=== PATIENT | male | born 1960 | race Caucasian/White ===

== ENCOUNTER → 2017-08-06 | Outpatient (CLI) | payer BC ==
--- NOTE | 2017-08-06 12:29 | XR ---
EXAMINATION TYPE: XR chest 2V DATE OF EXAM: 08/06/2017 COMPARISON: NONE HISTORY: History of tobacco use. TECHNIQUE: Frontal and lateral views of the chest are obtained. FINDINGS: There is no focal air space opacity, pleural effusion, or pneumothorax seen. Underlying em physematous change may be present. The cardiac silhouette size is within normal limits. The osseou s structures are intact. IMPRESSION: No acute cardiopulmonary process.
== END ==
LOC: RADXRMAIN 11:58
PROVIDERS: ATTEND Family Medicine
DX: Z00.00 Encounter for general adult medical examination without abnormal findings (principal)
CPT/HCPCS: 71046

== ENCOUNTER 2017-12-02 07:07 | Inpatient (IN) | payer BC ==
--- NOTE | 2017-12-02 07:53 | ED ---
General Adult HPI - General Chief complaint: Abdominal Pain Stated complaint: Abd Pain Time Seen by Provider: 12/02/17 07:07 Source: patient, RN notes reviewed Mode of arrival: ambulatory Limitations: no limitations - History of Present Illness Initial comments: This is a 57-year-old male who presents emergency Department complaining of mid abdominal pain starting yesterday and it progressed to right lower quadrant abdominal pain today. Patient states he vomited once last night has not vomited today but it was so painful he was unable to sleep all night. Patient denies any diarrhea. Patient states he is somewhat constipated but that kind of typical for him. Patient denies any chest pain difficult breathing shortness of breath. Patient denies any dysuria hematuria urinary frequency. Patient denies any back pain. - Related Data Home Medications Medication Instructions Recorded Confirmed HYDROcodone/APAP 10-325MG [[place] 1 tab PO BID PRN 12/02/17 12/02/17 10-325] Allergies Allergy/AdvReac Type Severity Reaction Status Date / Time No Known Allergies Allergy Verified 12/02/17 07:41 Review of Systems ROS Statement: Those systems with pertinent positive or pertinent negative responses have been documented in the HPI. ROS Other: All systems not noted in ROS Statement are negative. Past Medical History Past Medical History: No Reported History History of Any Multi-Drug Resistant Organisms: None Reported Additional Past Surgical History / Comment(s): ankle surgery Past Psychological History: No Psychological Hx Reported Smoking Status: Never smoker Past Alcohol Use History: Occasional Past Drug Use History: None Reported General Exam - General Exam Comments Initial Comments: GENERAL: Patient is well-developed and well-nourished. Patient is nontoxic and well- hydrated and is in moderate distress. ENT: Neck is soft and supple. No significant lymphadenopathy is noted. Oropharynx is clear. Moist mucous membranes. Neck has full range of motion without eliciting any pain. EYES: The sclera were anicteric and conjunctiva were pink and moist. Extraocular movements were intact and pupils were equal round and reactive to light. Eyelids were unremarkable. PULMONARY: Unlabored respirations. Good breath sounds bilaterally. No audible rales rhonchi or wheezing was noted. CARDIOVASCULAR: There is a regular rate and rhythm without any murmurs gallops or rubs. ABDOMEN: Right lower quadrant abdominal tenderness. No rebound No palpable organomegaly was noted. There is no palpable pulsatile mass. SKIN: Skin is clear with no lesions or rashes and otherwise unremarkable. NEUROLOGIC: Patient is alert and oriented x3. Cranial nerves II through XII are grossly intact. Motor and sensory are also intact. Normal speech, volume and content. Symmetrical smile. MUSCULOSKELETAL: Normal extremities with adequate strength and full range of motion. No lower extremity swelling or edema. No calf tenderness. LYMPHATICS: No significant lymphadenopathy is noted PSYCHIATRIC: Normal psychiatric evaluation. Limitations: no limitations Course Vital Signs 12/02/17 07:11 Temperature 98.4 F Pulse Rate 93 Respiratory 18 Rate Blood Pressure 148/79 O2 Sat by Pulse 98 Oximetry Medical Decision Making - Medical Decision Making EKG shows normal sinus rhythm at 75 bpm IN interval is 160 QRS is 96 QT interval 372 QTC is 4:15. Patient's EKG shows no ST segment elevation or depression or T wave abnormalities are noted. Patient's CAT scan came back and showed acute appendicitis without perforation or abscess. I spoke with Dr. Wayne he agreed to admit the patient and take the patient to the OR. I started the patient on Zosyn. - Lab Data Result diagrams: 12/02/17 07:43 12/02/17 07:43 Lab Results 12/02/17 12/02/17 12/02/17 Range/Units 07:43 07:43 07:43 WBC 15.6 H (3.8-10.6) k/uL RBC 5.01 (4.30-5.90) m/uL Hgb 15.9 (13.0-17.5) gm/dL Hct 47.5 (39.0-53.0) % MCV 94.7 (80.0-100.0) fL MCH 31.7 (25.0-35.0) pg MCHC 33.5 (31.0-37.0) g/dL RDW 12.8 (11.5-15.5) % Plt Count 199 (150-450) k/uL Neutrophils % 87 % Lymphocytes % 6 % Monocytes % 6 % Eosinophils % 0 % Basophils % 0 % Neutrophils # 13.5 H (1.3-7.7) k/uL Lymphocytes # 0.9 L (1.0-4.8) k/uL Monocytes # 0.9 (0-1.0) k/uL Eosinophils # 0.1 (0-0.7) k/uL Basophils # 0.0 (0-0.2) k/uL Sodium 138 (137-145) mmol/L Potassium 4.4 (3.5-5.1) mmol/L Chloride 102 (98-107) mmol/L Carbon Dioxide 27 (22-30) mmol/L Anion Gap 9 mmol/L BUN 16 (9-20) mg/dL Creatinine 0.90 (0.66-1.25) mg/dL Est GFR (CKD-EPI)AfAm >90 (>60 ml/min/1.73 sqM) Est GFR (CKD-EPI)NonAf >90 (>60 ml/min/1.73 sqM) Glucose 124 H (74-99) mg/dL Plasma Lactic Acid Rey 1.6 (0.7-2.0) mmol/L Calcium 9.6 (8.4-10.2) mg/dL Total Bilirubin 0.9 (0.2-1.3) mg/dL AST 22 (17-59) U/L ALT 33 (21-72) U/L Alkaline Phosphatase 71 (38-126) U/L Total Protein 6.7 (6.3-8.2) g/dL Albumin 4.2 (3.5-5.0) g/dL Amylase 36 (30-110) U/L Lipase 39 (23-300) U/L Urine Color Urine Appearance (Clear) Urine pH (5.0-8.0) Ur Specific [place] (1.001-1.035) Urine Protein (Negative) Urine Glucose (UA) (Negative) Urine Ketones (Negative) Urine Blood (Negative) Urine Nitrite (Negative) Urine Bilirubin (Negative) Urine Urobilinogen (<2.0) mg/dL Ur Leukocyte Esterase (Negative) 12/02/17 Range/Units 07:43 WBC (3.8-10.6) k/uL RBC (4.30-5.90) m/uL Hgb (13.0-17.5) gm/dL Hct (39.0-53.0) % MCV (80.0-100.0) fL MCH (25.0-35.0) pg MCHC (31.0-37.0) g/dL RDW (11.5-15.5) % Plt Count (150-450) k/uL Neutrophils % % Lymphocytes % % Monocytes % % Eosinophils % % Basophils % % Neutrophils # (1.3-7.7) k/uL Lymphocytes # (1.0-4.8) k/uL Monocytes # (0-1.0) k/uL Eosinophils # (0-0.7) k/uL Basophils # (0-0.2) k/uL Sodium (137-145) mmol/L Potassium (3.5-5.1) mmol/L Chloride (98-107) mmol/L Carbon Dioxide (22-30) mmol/L Anion Gap mmol/L BUN (9-20) mg/dL Creatinine (0.66-1.25) mg/dL Est GFR (CKD-EPI)AfAm (>60 ml/min/1.73 sqM) Est GFR (CKD-EPI)NonAf (>60 ml/min/1.73 sqM) Glucose (74-99) mg/dL Plasma Lactic Acid Rey (0.7-2.0) mmol/L Calcium (8.4-10.2) mg/dL Total Bilirubin (0.2-1.3) mg/dL AST (17-59) U/L ALT (21-72) U/L Alkaline Phosphatase (38-126) U/L Total Protein (6.3-8.2) g/dL Albumin (3.5-5.0) g/dL Amylase (30-110) U/L Lipase (23-300) U/L Urine Color Yellow Urine Appearance Clear (Clear) Urine pH 5.5 (5.0-8.0) Ur Specific [place] 1.017 (1.001-1.035) Urine Protein Negative (Negative) Urine Glucose (UA) Negative (Negative) Urine Ketones Negative (Negative) Urine Blood Negative (Negative) Urine Nitrite Negative (Negative) Urine Bilirubin Negative (Negative) Urine Urobilinogen <2.0 (<2.0) mg/dL Ur Leukocyte Esterase Negative (Negative) Disposition Clinical Impression: Acute appendicitis Disposition: ADMITTED IP TO THIS [facility] Referrals: Jesse Jameson DO [Primary Care Provider] - 1-2 days Time of Disposition: 09:13
[2017-12-02 08:13] LABS: Basophils % (A) 0 %; Eosinophils # (A) 0.1 k/uL (0-0.7); Eosinophils % (A) 0 %; HCT 47.5 % (39.0-53.0); HGB 15.9 gm/dL (13.0-17.5); Lymphocytes # (A) 0.9 k/uL (1.0-4.8); Lymphocytes % (A) 6 %; MCH 31.7 pg (25.0-35.0); MCHC 33.5 g/dL (31.0-37.0); MCV 94.7 fL (80.0-100.0); Monocytes # (A) 0.9 k/uL (0-1.0); Monocytes % (A) 6 %; Neutrophils # (A) 13.5 k/uL (1.3-7.7); Neutrophils % (A) 87 %; Platelet Count 199 k/uL (150-450); RBC 5.01 m/uL (4.30-5.90); RDW 12.8 % (11.5-15.5); WBC 15.6 k/uL (3.8-10.6)
[2017-12-02 08:14] LABS: Appearance,Urine Clear (Clear); Bilirubin,Urine Negative (Negative); Blood,Urine Negative (Negative); Color,Urine Yellow; Glucose,Urine (UA) Negative (Negative); Ketones,Urine Negative (Negative); Leukocyte Esterase,Urine Negative (Negative); Nitrite,Urine Negative (Negative); PH, Urine 5.5 (5.0-8.0); Protein,Urine Negative (Negative); Specific Gravity,Urine 1.017 (1.001-1.035); Urobilinogen,Urine <2.0 mg/dL (<2.0)
[2017-12-02 08:27] LABS: ALT 33 U/L (21-72); AST 22 U/L (17-59); Albumin 4.2 g/dL (3.5-5.0); Alkaline Phosphatase 71 U/L (38-126); Amylase 36 U/L (30-110); Anion Gap 9 mmol/L; Blood Urea Nitrogen 16 mg/dL (9-20); Calcium 9.6 mg/dL (8.4-10.2); Carbon Dioxide 27 mmol/L (22-30); Chloride 102 mmol/L (98-107); Glucose 124 mg/dL (74-99); Lipase 39 U/L (23-300); Potassium 4.4 mmol/L (3.5-5.1); Sodium 138 mmol/L (137-145); Total Bilirubin 0.9 mg/dL (0.2-1.3); Total Protein 6.7 g/dL (6.3-8.2)
--- NOTE | 2017-12-02 08:42 | CT ---
EXAMINATION TYPE: CT abdomen pelvis wo con DATE OF EXAM: 12/02/2017 COMPARISON: CT 10/19/2008 HISTORY: 57-year-old male abdominal pain CT DLP: 1066 mGycm. Automated exposure control for dose reduction was used. TECHNIQUE: Contiguous axial scanning of the abdomen and pelvis without IV contrast. Coronal and sagit radha reconstructions performed. FINDINGS: Heart normal size with trace anterior pericardial effusion. Tiny hiatal hernia. Strandy atelectasis o r scarring at the right lung base. No pleural effusion. Liver mildly enlarged at 19.4 cm. Noncontrast appearance of the liver, gallbladder, adrenal glands, k idneys, spleen within normal limits. There is a 1 cm nodule at the tip of the pancreatic tail suspect ed to represent a splenule as the finding is unchanged from 10/19/2008. No dilated small bowel, free fluid, or free air. Small to moderate-sized fatty umbilical hernia measuring 2.8 cm wide. There is focal thickening and surrounding inflammatory change involving the appendix which is dilated up to 1.3 cm. Small appendicoliths measuring up to 6 mm are present at the appendiceal base. Mild to moderate surrounding fat stranding and tracking edema is present. No mesenteric or retroperitoneal lymphadenopathy. Mild stool burden. Some mild sigmoid diverticulosis without surrounding inflammation. Mild circumferential bladder wall thickening. Prostate gland is mildly prominent at 4.7 cm wide. Pelv ic phleboliths. No abnormal fluid collection in the pelvis or pelvic lymphadenopathy. Bones: Degenerative changes of the hips and left SI joint and degenerative disc disease particularly at L5-S1. IMPRESSION: 1. Exam positive for acute appendicitis with mild to moderate surrounding inflammation. No abscess o r free air. 2. Fatty umbilical hernia measuring 2.8 cm, tiny hiatal hernia, mild sigmoid diverticulosis. 3. Mild circumferential bladder wall thickening could relate to cystitis or chronic bladder wall hyp ertrophy. Clinically correlate.
[2017-12-02] MEDS ORDERED: PIPERACILLIN-TAZOBACTAM 3.375 GM in DEXTROSE/WATER 1 50ML.BAG IVPB STA (09:06)
[2017-12-02] MEDS ORDERED: ACETAMINOPHEN IV (For NPO) 1,000 MG in EMPTY BAG 1 BAG IVPB STA (09:38)
[2017-12-02] MEDS ORDERED: SODIUM CHLORIDE 0.9% 1,000 ML IV ONE (10:12)
--- NOTE | 2017-12-02 11:42 | P.GSHP ---
History of Present Illness H&P Date: 12/02/17 57-year-old male presents to the emergency room for chief complaint of right lower quadrant pain radiating to the mid abdomen with nausea and vomiting. Patient stated the pain was intolerable. He was not able to sleep could not lie down because of the pain. Patient stated he thought at first he was constipated. Did take a fleets enema with no results . Patient denied any episodes of chest pain, shortness of breath dizziness lightheadedness. Patient stated that he had not had any similar episodes. In the emergency room a CAT scan of the abdomen and pelvis reviewing the report indicate acute appendicitis without perforation or abscess. White count on admission 15.6. Temp 98.4. Continues to report having right lower quadrant abdominal pain worse with movement did note patient does have a small reducible umbilical hernia with the palpable left anterior abdominal wall nodule. Patient states he did tell his primary care provider about his hernia the palpable small nodule Umbilical hernia small non-red nontender with a small left anterior wall be size is not noted under the skin patient states the areas are not tender Patient states he is being worked up by orthopedic Dr. Rasmussen for left shoulder rotator cuff had an MRI last week and was to see Dr. Rasmussen today in the office to talk about treatment options stated that he was given a prescription for Gaston's because of his left shoulder pain was concerned that the Gaston's was causing constipation which was contributing to his right lower quadrant abdominal pain - Review of Systems Comment: Essentially unremarkable except as mentioned in the present illness Past Medical History Past Medical History: No Reported History History of Any Multi-Drug Resistant Organisms: None Reported Additional Past Surgical History / Comment(s): ankle surgery Past Psychological History: No Psychological Hx Reported Smoking Status: Never smoker Past Alcohol Use History: Occasional Past Drug Use History: None Reported - Past Family History Father Family Medical History: Diabetes Mellitus, Renal Disease Additional Family Medical History / Comment(s): Father at the age of 61 or 62 from diabetic complications. He had a kidney transplant. Mother Family Medical History: COPD Additional Family Medical History / Comment(s): Mother at the age of 71 yrs. She was a smoker. Medications and Allergies Home Medications Medication Instructions Recorded Confirmed Type HYDROcodone/APAP 10-325MG [[place] 1 tab PO BID PRN 12/02/17 12/02/17 History 10-325] Allergies Allergy/AdvReac Type Severity Reaction Status Date / Time No Known Allergies Allergy Verified 12/02/17 07:41 Surgical - Exam Vital Signs Temp Pulse Resp BP Pulse Ox 98.4 F 93 18 148/79 98 12/02/17 07:11 12/02/17 07:11 12/02/17 07:11 12/02/17 07:11 12/02/17 07:11 GENERAL APPEARANCE: 57-year-old male patient is alert, oriented, in no acute distress. VITAL SIGNS: Reviewed HEENT: Head is normocephalic and atraumatic. Pupils are equal and reactive. The nares are patent. Oropharynx is clear without lesions. NECK: Supple without lymphadenopathy. Traches midline. HEART: S1, S2. Regular rate and rhythm. No murmur denying chest pain LUNGS: No crackles or wheezes are heard. Adequate air movement bilaterally no cough noted ABDOMEN: Soft, positive tenderness with palpitation to the right upper quadrant increase with movement, nondistended with good bowel sounds. No peritoneal signs. No palpable organomegaly EXTREMITIES: Normal skin color and turgor. No cyanosis, rash, ulceration, clubbing or edema. Radial pedal pulses are 2/4 bilaterally. NEUROLOGICAL: No focal deficits. Strength and sensation are grossly intact. Results - Labs 12/02/17 07:43 12/02/17 07:43 Abnormal Lab Results - Last 24 Hours (Table) 12/02/17 12/02/17 Range/Units 07:43 07:43 WBC 15.6 H (3.8-10.6) k/uL Neutrophils # 13.5 H (1.3-7.7) k/uL Lymphocytes # 0.9 L (1.0-4.8) k/uL Glucose 124 H (74-99) mg/dL Diabetes panel 12/02/17 Range/Units 07:43 Sodium 138 (137-145) mmol/L Potassium 4.4 (3.5-5.1) mmol/L Chloride 102 (98-107) mmol/L Carbon Dioxide 27 (22-30) mmol/L BUN 16 (9-20) mg/dL Creatinine 0.90 (0.66-1.25) mg/dL Glucose 124 H (74-99) mg/dL Calcium 9.6 (8.4-10.2) mg/dL AST 22 (17-59) U/L ALT 33 (21-72) U/L Alkaline Phosphatase 71 (38-126) U/L Total Protein 6.7 (6.3-8.2) g/dL Albumin 4.2 (3.5-5.0) g/dL Calcium panel 12/02/17 Range/Units 07:43 Calcium 9.6 (8.4-10.2) mg/dL Albumin 4.2 (3.5-5.0) g/dL Pituitary panel 12/02/17 Range/Units 07:43 Sodium 138 (137-145) mmol/L Potassium 4.4 (3.5-5.1) mmol/L Chloride 102 (98-107) mmol/L Carbon Dioxide 27 (22-30) mmol/L BUN 16 (9-20) mg/dL Creatinine 0.90 (0.66-1.25) mg/dL Glucose 124 H (74-99) mg/dL Calcium 9.6 (8.4-10.2) mg/dL Adrenal panel 12/02/17 Range/Units 07:43 Sodium 138 (137-145) mmol/L Potassium 4.4 (3.5-5.1) mmol/L Chloride 102 (98-107) mmol/L Carbon Dioxide 27 (22-30) mmol/L BUN 16 (9-20) mg/dL Creatinine 0.90 (0.66-1.25) mg/dL Glucose 124 H (74-99) mg/dL Calcium 9.6 (8.4-10.2) mg/dL Total Bilirubin 0.9 (0.2-1.3) mg/dL AST 22 (17-59) U/L ALT 33 (21-72) U/L Alkaline Phosphatase 71 (38-126) U/L Total Protein 6.7 (6.3-8.2) g/dL Albumin 4.2 (3.5-5.0) g/dL Assessment and Plan Assessment: Impression Present on admission right lower quadrant abdominal pain suspect due to acute appendicitis Computed tomography scan of the abdomen pelvis report indicates evidence of acute appendicitis without perforation or abscess Present on admission leukocytosis present on admission small reducible umbilical hernia Left shoulder rotator cuff pain being worked up by orthopedics Plan IV fluid for hydration Keep nothing by mouth OR today for a lap appendectomy per Pain control DVT and GI prophylaxis IV Zosyn as ordered The above impression and plan of care have been discussed and directed by signing physician. Brittney Cabello nurse practitioner acting as scribe for signing physician.
[2017-12-02] MEDS: FAMOTIDINE 20 MG/2 ML VIAL IV SCH ×2 (13:38→22:01)
[2017-12-02] MEDS ORDERED: IV FLUID CONTINUATION 1,000 ML IV ONE (14:13)
[2017-12-02] MEDS ORDERED: ROCURONIUM BROMIDE 10 MG/ML 10 ML VIAL IV ONE (14:42)
[2017-12-02] MEDS ORDERED: GLYCOPYRROLATE 0.2 MG/ML 2 ML VIAL ONE (14:42)
[2017-12-02] MEDS ORDERED: fentaNYL (PF) 50 MCG/ML 2 ML AMP ONE (14:42)
[2017-12-02] MEDS ORDERED: MIDAZOLAM 2 MG/2 ML VIAL ONE (14:42)
[2017-12-02] MEDS ORDERED: KETOROLAC 30 MG/ML 1 ML VIAL ONE (14:42)
[2017-12-02] MEDS ORDERED: LIDOCAINE 1% INJ 10MG/ML (20 ML MDV) ONE (14:42)
[2017-12-02] MEDS ORDERED: PROPOFOL 10 MG/ML 20 ML VIAL IV ONE (14:42)
[2017-12-02] MEDS ORDERED: SUCCINYLCHOLINE CHLORIDE 100 MG/5 ML SYR IV ONE (14:42)
[2017-12-02] MEDS ORDERED: NEOSTIGMINE 1 MG/ML 10 ML VIAL ONE (14:42)
[2017-12-02] MEDS ORDERED: ONDANSETRON 4 MG/2 ML VIAL IVP PRN ×2 (14:47→15:21)
--- NOTE | 2017-12-02 14:48 | P.CONS ---
History of Present Illness - Reason for Consult Consult date: 12/02/17 Medical management - History of Present Illness This is a 57-year-old male patient of Dr. Jameson with past medical history of benign prostatic hypertrophy, skin cancer on the left cheek. Patient gives history that on yesterday morning around 10:30 in the morning started having pain started in the epigastric area and then down into the entire stomach. Eventually was painful in the right lower quadrant in the area felt hard. He states he was rubbing the area without any improvement. He had increased pain with any type of movement and did not sleep well during the night. By morning he knew that he needed to come in the hospital with worsening pain and discomfort.. Patient came into [facility] emergency center for evaluation. He was found to have elevated white count of 15.6, CAT scan of the abdomen and pelvis revealed acute appendicitis with mild to moderate surrounding inflammation. No abscess or free air. Fatty umbilical hernia measuring 2.8 cm , tiny hiatal hernia, mild sigmoid diverticulosis. Mild circumferential bladder wall thickening could relate to cystitis or chronic bladder wall hypertrophy. Patient was admitted under the care of Dr. Wayne with plan for appendectomy this afternoon. Patient is medically cleared for surgical intervention. Review of Systems All systems: negative Constitutional: Reports poor appetite, Denies chills, Denies fever Eyes: denies blurred vision, denies pain Ears, nose, mouth and throat: Denies headache, Denies sore throat, Denies vertigo Cardiovascular: Denies chest pain, Denies decreased exercise tolerance, Denies dyspnea on exertion, Denies leg edema, Denies lightheadedness, Denies shortness of breath, Denies syncope Respiratory: Denies cough, Denies cough with sputum, Denies dyspnea, Denies excessive sputum, Denies hemoptysis, Denies home oxygen, Denies wheezing Gastrointestinal: Reports abdominal pain, Reports loss of appetite, Reports nausea, Reports vomiting, Denies diarrhea Genitourinary: Denies dysuria, Denies urinary frequency, Denies urinary retention Musculoskeletal: Denies frequent falls, Denies myalgias Integumentary: Denies pruritus, Denies rash Neurological: Denies numbness, Denies weakness Psychiatric: Denies anxiety, Denies depression Endocrine: Denies fatigue, Denies weight change Past Medical History Past Medical History: No Reported History Additional Past Medical History / Comment(s): Arthritis L thumb, past L ankle fracture with surgery, BPH, constipation, skin cancer removal. History of Any Multi-Drug Resistant Organisms: None Reported Additional Past Surgical History / Comment(s): ankle surgery Past Anesthesia/Blood Transfusion Reactions: No Reported Reaction, Motion Sickness Past Psychological History: No Psychological Hx Reported Smoking Status: Former smoker Past Alcohol Use History: Occasional Additional Past Alcohol Use History / Comment(s): Patient quit smoking in 1996. He denies any medical marijuana, marijuana, street drug or alcohol use. Past Drug Use History: None Reported - Past Family History Father Family Medical History: Diabetes Mellitus, Renal Disease Additional Family Medical History / Comment(s): Father at the age of 61 or 62 from diabetic complications. He had a kidney transplant. Mother Family Medical History: COPD Additional Family Medical History / Comment(s): Mother at the age of 71 yrs. She was a smoker. Brother(s) Additional Family Medical History / Comment(s): Patient has 2 brothers and one has history of diabetes and the other patient does not know. Patient has 1 sister with no major medical problems. Daughter(s) Additional Family Medical History / Comment(s): Patient has one daughter 31 years of age and one son 29 years of age with no major medical problems. Medications and Allergies Home Medications Medication Instructions Recorded Confirmed Type HYDROcodone/APAP 10-325MG [[place] 1 tab PO BID PRN 12/02/17 12/02/17 History 10-325] Allergies Allergy/AdvReac Type Severity Reaction Status Date / Time No Known Allergies Allergy Verified 12/02/17 07:41 Physical Exam Vitals: Vital Signs Temp Pulse Resp BP Pulse Ox 12/02/17 10:46 98 F 86 18 141/65 99 12/02/17 09:30 98.7 F 85 18 119/67 98 12/02/17 07:11 98.4 F 93 18 148/79 98 Intake and Output 12/01/17 12/02/17 12/02/17 22:59 06:59 14:59 Other: Weight 102.058 kg Gen: This is a 57-year-old male patient. He is in bed and appears to be comfortable at this time. No acute distress noted. HEENT: Head is atraumatic, normocephalic. Pupils equal, round. Sclerae is anicteric. NECK: Supple. No JVD. No lymphadenopathy. No thyromegaly. LUNGS: Clear to auscultation. No wheezes or rhonchi. No intercostal retractions. HEART: Regular rate and rhythm. No murmur. ABDOMEN: Soft. Bowel sounds are present. No masses. Tenderness to the right upper quadrant, right lower quadrant. EXTREMITIES: No pedal edema. No calf tenderness. NEUROLOGICAL: Patient is awake, alert and oriented x3. Cranial nerves 2 through 12 are grossly intact. Results CBC & Chem 7: 12/02/17 07:43 12/02/17 07:43 Labs: Abnormal Lab Results - Last 24 Hours (Table) 12/02/17 12/02/17 Range/Units 07:43 07:43 WBC 15.6 H (3.8-10.6) k/uL Neutrophils # 13.5 H (1.3-7.7) k/uL Lymphocytes # 0.9 L (1.0-4.8) k/uL Glucose 124 H (74-99) mg/dL Assessment and Plan Plan: 1. Acute appendicitis. Patient is planned for surgery this afternoon. Continue current plan per Dr. Wayne. Continue Zosyn, IV fluids at 125 mL per hour, Dilaudid for pain control. Zofran as needed for nausea and vomiting. Incentive spirometry to reduce incidence of atelectasis and hospital-acquired pneumonia. 2. Leukocytosis secondary to acute appendicitis, monitor. 3. Left shoulder rotator cuff pain following with orthopedics as an outpatient. 4. DVT prophylaxis. Pepcid IV. Discharge plan: Return home. Impression and plan of care have been directed as dictated by the signing physician. Shannon Clifford nurse practitioner acting as scribe for signing physician.
[2017-12-02] MEDS ORDERED: BUPIVACAINE (PF) 0.5% 30 ML VIAL SQ ONE (15:00)
--- NOTE | 2017-12-02 15:20 | P.OP ---
Date of Procedure: 12/02/17 Preoperative Diagnosis: Acute appendicitis Postoperative Diagnosis: Acute appendicitis Procedure(s) Performed: Laparoscopic appendectomy Anesthesia: [place] Surgeon: Romaine Wayne Estimated Blood Loss (ml): 5 Pathology: other (Appendix) Condition: stable Disposition: PACU Description of Procedure: HThe patient's placed on the operating table in the supine position. The patient received general anesthesia. The abdomen was prepped and draped in the usual sterile fashion. The skin was anesthetized 1% local Xylocaine at the trocar sites. Using an 11 blade the skin was incised at the umbilicus. The umbilicus was grasped with a Sarina clamp and then a Veress needle was placed into the peritoneal cavity. Position of the Veress needle was confirmed with positive drop test. After adequate insufflation a 5 mm trocar was placed into the peritoneal cavity. The abdomen was further insufflated. And then the laparoscope was placed in the peritoneal cavity. Next a 5 mm trocar was placed in the midline suprapubic position. And then a 10 mm trocar was placed in the midline epigastric position. The patient was rotated with the right side up and in Trendelenburg. The appendix was visualized. The appendix appeared to be inflamed. The appendix was grasped and then using the Harmonic scissors the mesoappendix was divided. A PDS Endoloop was then placed around the base of the appendix. And then the appendix was divided using Harmonic scissors. The appendix was placed into an Endo Catch and brought out through the 10 mm trocar site. The abdomen was irrigated. There is no bleeding seen. The trochars withdrawn. The skin was closed interrupted 3-0 Monocryl suture. Dermabond dressing was applied. Patient was sent to recovery room in stable condition.
[2017-12-02] MEDS ORDERED: LACTATED RINGERS 1,000 ML IV ONE (15:21)
[2017-12-02] MEDS ORDERED: NALOXONE 0.4 MG/ML 1 ML VIAL IV PRN (15:21)
[2017-12-02] MEDS ORDERED: METOCLOPRAMIDE 5 MG/ML 2 ML VIAL IVP PRN (15:21)
[2017-12-02] MEDS: KETOROLAC 30 MG/ML 1 ML VIAL IVP SCH ×2 (16:22→21:58)
[2017-12-02] MEDS: PIPERACILLIN-TAZOBACTAM 3.375 GM in DEXTROSE/WATER 1 50ML.BAG IVPB SCH (16:29)
[2017-12-02] MEDS: HYDROmorphone 0.5 MG/0.5 ML SYRINGE IVP PRN ×2 (17:20→22:01)
[2017-12-03] MEDS: PIPERACILLIN-TAZOBACTAM 3.375 GM in DEXTROSE/WATER 1 50ML.BAG IVPB SCH ×4 (00:01→23:13)
[2017-12-03] MEDS: KETOROLAC 30 MG/ML 1 ML VIAL IVP SCH ×4 (03:50→21:28)
[2017-12-03] MEDS: HYDROmorphone 0.5 MG/0.5 ML SYRINGE IVP PRN ×3 (03:51→17:06)
[2017-12-03] MEDS: ENOXAPARIN 40 MG/0.4 ML SYRINGE SQ SCH (08:31)
[2017-12-03] MEDS: FAMOTIDINE 20 MG/2 ML VIAL IV SCH ×2 (08:31→21:28)
--- NOTE | 2017-12-03 11:09 | P.PN ---
Progress Note - Text Progress Note Date: 12/03/17 The patient's resting comfortably in bed. He still has some complaints of abdominal pain. On exam his vital signs are stable. His abdomen soft. Patient will continue receive IV antibiotic. We dysphagia discharge home tomorrow.
--- NOTE | 2017-12-03 15:47 | P.PN ---
Subjective Progress Note Date: 12/03/17 This is a 57-year-old male patient of Dr. Jameson with past medical history of benign prostatic hypertrophy, skin cancer on the left cheek. Patient gives history that on yesterday morning around 10:30 in the morning started having pain started in the epigastric area and then down into the entire stomach. Eventually was painful in the right lower quadrant in the area felt hard. He states he was rubbing the area without any improvement. He had increased pain with any type of movement and did not sleep well during the night. By morning he knew that he needed to come in the hospital with worsening pain and discomfort.. Patient came into [facility] emergency center for evaluation. He was found to have elevated white count of 15.6, CAT scan of the abdomen and pelvis revealed acute appendicitis with mild to moderate surrounding inflammation. No abscess or free air. Fatty umbilical hernia measuring 2.8 cm , tiny hiatal hernia, mild sigmoid diverticulosis. Mild circumferential bladder wall thickening could relate to cystitis or chronic bladder wall hypertrophy. Patient was admitted under the care of Dr. Wayne with plan for appendectomy this afternoon. Patient is medically cleared for surgical intervention. 12/03 patient examined bedside. Currently on clear liquid diet. His complains of significant abdominal pain in the right lower quadrant on deep palpation. Patient encouraged oral pain medication and to avoid IV pain medication. Complain of significant bloating, no bowel movements for the past 2 days Objective - Vital Signs Vital signs: Vital Signs Temp 98.1 F 12/03/17 15:00 Pulse 93 12/03/17 15:00 Resp 16 12/03/17 15:00 BP 123/78 12/03/17 15:00 Pulse Ox 95 12/03/17 15:00 Intake & Output 12/02/17 12/03/17 12/03/17 18:59 06:59 18:59 Intake Total 800 1050 Output Total 2 200 Balance 798 -200 1050 Weight 102.058 kg Intake: IV 800 Intake, IV Titration 1050 Amount IV Fluid Continuation 1, 50 000 ml @ 0 mls/hr IV .STK -MED ONE Rx#:[id number] Lactated Ringers 1,000 ml 1000 @ 125 mls/hr IV .Q8H ONE Rx#:[id number] Output: Urine 200 Estimated Blood Loss 2 Other: Voiding Method Toilet Toilet Urinal # Voids 1 0 # Bowel Movements 0 - Exam Gen: This is a 57-year-old male patient. He is in bed and appears to be comfortable at this time. No acute distress noted. HEENT: Head is atraumatic, normocephalic. Pupils equal, round. Sclerae is anicteric. NECK: Supple. No JVD. No lymphadenopathy. No thyromegaly. LUNGS: Clear to auscultation. No wheezes or rhonchi. No intercostal retractions. HEART: Regular rate and rhythm. No murmur. ABDOMEN: Soft. Bowel sounds are present. No masses. Distended in appearance Tenderness to the right lower quadrant on deep palpation. EXTREMITIES: No pedal edema. No calf tenderness. NEUROLOGICAL: Patient is awake, alert and oriented x3. Cranial nerves 2 through 12 are grossly intact. - Labs CBC & Chem 7: 12/02/17 07:43 12/02/17 07:43 Assessment and Plan Plan: 1. Acute appendicitis. Patient is planned for surgery this afternoon. Continue current plan per Dr. Wayne. Continue Zosyn, IV fluids at 125 mL per hour, Dilaudid for pain control. Zofran as needed for nausea and vomiting. Incentive spirometry to reduce incidence of atelectasis and hospital-acquired pneumonia. 2. Leukocytosis secondary to acute appendicitis, monitor. 3. Left shoulder rotator cuff pain following with orthopedics as an outpatient. 4. DVT prophylaxis. Pepcid IV. Discharge plan: Return home tomorrow.
[2017-12-03] MEDS: HYDROcodone/APAP 5-325MG 1 EACH TAB PO PRN (20:12)
[2017-12-04] MEDS: KETOROLAC 30 MG/ML 1 ML VIAL IVP SCH ×3 (04:46→12:14)
[2017-12-04] MEDS ORDERED: ACETAMINOPHEN TAB 325 MG TAB PO PRN (05:55)
[2017-12-04] MEDS: PIPERACILLIN-TAZOBACTAM 3.375 GM in DEXTROSE/WATER 1 50ML.BAG IVPB SCH ×3 (08:26→23:29)
[2017-12-04] MEDS: ENOXAPARIN 40 MG/0.4 ML SYRINGE SQ SCH (08:26)
[2017-12-04] MEDS: FAMOTIDINE 20 MG/2 ML VIAL IV SCH ×2 (08:26→19:55)
--- NOTE | 2017-12-04 09:20 | P.PN ---
Progress Note - Text Progress Note Date: 12/04/17 The patient is resting comfortably in his bed. He has minimal Pain. He is passing flatus. The patient did spike a temperature of 101 earlier this morning. On exam is lesser stable. His evidence soft. Status post laparoscopic appendectomy for acute appendicitis. Patient will remain in the hospital today for continued IV antibiotics. We will hopefully discharge home tomorrow.
--- NOTE | 2017-12-04 13:50 | XR ---
EXAMINATION TYPE: XR chest 2V DATE OF EXAM: 12/04/2017 HISTORY: hypoxia. REFERENCE: Previous study dated 08/06/2017. FINDINGS: There is some atelectasis at the left lung base. The lungs are otherwise clear. Pleural spa ce are clear. Heart size is within normal limits. IMPRESSION: DEVELOPING ATELECTASIS OR CONSOLIDATION, LEFT LUNG BASE.
--- NOTE | 2017-12-04 13:52 | XR ---
EXAMINATION TYPE: XR abdomen 1V , 2 VIEWS DATE OF EXAM ORDERED: 12/04/2017 HISTORY: ileitis . COMPARISON: None. FINDINGS: There is increased opacity at the left lung base. Within the abdomen, the abdominal gas pattern is nonspecific with nondistended air-filled loops of la rge and small bowel throughout the abdomen. There are multiple air-fluid levels. There are no unusual calcifications. Both femoral heads are nonspherical. IMPRESSION: 1. LEFT LOWER LOBE INFILTRATE. 2. FINDINGS MOST CONSISTENT WITH GENERALIZED ILEUS. 3. PLEASE CORRELATE CLINICALLY TO EXCLUDE FEMOROACETABULAR IMPINGEMENT SYNDROME.
--- NOTE | 2017-12-04 15:54 | P.PN ---
Subjective This is a 57-year-old male patient of Dr. Jameson with past medical history of benign prostatic hypertrophy, skin cancer on the left cheek. Patient gives history that on yesterday morning around 10:30 in the morning started having pain started in the epigastric area and then down into the entire stomach. Eventually was painful in the right lower quadrant in the area felt hard. He states he was rubbing the area without any improvement. He had increased pain with any type of movement and did not sleep well during the night. By morning he knew that he needed to come in the hospital with worsening pain and discomfort.. Patient came into [facility] emergency center for evaluation. He was found to have elevated white count of 15.6, CAT scan of the abdomen and pelvis revealed acute appendicitis with mild to moderate surrounding inflammation. No abscess or free air. Fatty umbilical hernia measuring 2.8 cm , tiny hiatal hernia, mild sigmoid diverticulosis. Mild circumferential bladder wall thickening could relate to cystitis or chronic bladder wall hypertrophy. Patient was admitted under the care of Dr. Wayne with plan for appendectomy this afternoon. Patient is medically cleared for surgical intervention. 12/03 patient examined bedside. Currently on clear liquid diet. His complains of significant abdominal pain in the right lower quadrant on deep palpation. Patient encouraged oral pain medication and to avoid IV pain medication. Complain of significant bloating, no bowel movements for the past 2 days 12/04 patient had a temp of 101 last night. Denies any cough but does have some phlegm production associated with some congestion. Patient was on IV fluids and has crackles on examination likely secondary to volume overload. Chest x- ray concerning for developing atelectasis or consolidation in the left lung base. Abdominal x-ray positive for ileus patient to be kept nothing by mouth. Blood cultures sent. He urine analysis completely clean. Continue to use Zosyn Objective - Vital Signs Vital signs: Vital Signs Temp 99.4 F 12/04/17 14:32 Pulse 118 H 12/04/17 14:32 Resp 16 12/04/17 14:32 BP 115/68 12/04/17 14:32 Pulse Ox 100 12/04/17 14:32 Intake & Output 12/03/17 12/04/17 12/04/17 18:59 06:59 18:59 Intake Total 1050 50 Balance 1050 50 Intake: Intake, IV Titration 1050 50 Amount IV Fluid Continuation 1, 50 0 000 ml @ 0 mls/hr IV .STK -MED ONE Rx#:[id number] Lactated Ringers 1,000 ml 1000 @ 125 mls/hr IV .Q8H ONE Rx#:[id number] Piperacillin-Tazobactam 3 50 .375 gm In Dextrose/Water 1 50ml.bag @ 12.5 mls/hr IVPB Q8HR [facility] Rx#: [id number] Other: # Voids 1 - Exam Gen: This is a 57-year-old male patient. He is in bed and appears to be comfortable at this time. No acute distress noted. HEENT: Head is atraumatic, normocephalic. Pupils equal, round. Sclerae is anicteric. NECK: Supple. No JVD. No lymphadenopathy. No thyromegaly. LUNGS: Decreased air entry bilaterally at the bases. Crackles heard at the left lung bases. HEART: Tachycardic with normal rhythm. No murmur. ABDOMEN: Soft. Bowel sounds are present. Abdominal distention. No masses. Distended in appearance Tenderness to the right lower quadrant on deep palpation. EXTREMITIES: No pedal edema. No calf tenderness. NEUROLOGICAL: Patient is awake, alert and oriented x3. Cranial nerves 2 through 12 are grossly intact. - Labs CBC & Chem 7: 12/02/17 07:43 12/02/17 07:43 Assessment and Plan Plan: 1. Acute appendicitis. Patient is planned for surgery this afternoon. Continue current plan per Dr. Wayne. Continue Zosyn, IV fluids at 125 mL per hour, Dilaudid for pain control. Zofran as needed for nausea and vomiting. Incentive spirometry to reduce incidence of atelectasis and hospital-acquired pneumonia. 2. Fever with Leukocytosis secondary to pneumonia. Continue Zosyn. DuoNeb as needed for shortness of breath 3. Left shoulder rotator cuff pain following with orthopedics as an outpatient. 4. DVT prophylaxis. Heparin every 12 #5 generalized ileus - keep patient nothing by mouth except ice chips Discharge plan: pending clinical improvement
[2017-12-04] MEDS ORDERED: DEXTROSE 5%-0.9% NACL 1,000 ML IV SCH (16:00)
[2017-12-04] MEDS ORDERED: D5W WITH KCL 20 MEQ/L 1,000 ML IV SCH (16:00)
[2017-12-04 17:31] LABS: Albumin 3.5 g/dL (3.5-5.0); Basophils % (A) 0 %; Calcium 9.1 mg/dL (8.4-10.2); Eosinophils # (A) 0.3 k/uL (0-0.7); Eosinophils % (A) 3 %; HCT 44.4 % (39.0-53.0); HGB 15.1 gm/dL (13.0-17.5); Lymphocytes # (A) 0.9 k/uL (1.0-4.8); Lymphocytes % (A) 8 %; MCH 32.8 pg (25.0-35.0); MCV 96.6 fL (80.0-100.0); Mean Platelet Volume 7.9; Monocytes # (A) 0.7 k/uL (0-1.0); Monocytes % (A) 6 %; Neutrophils # (A) 9.5 k/uL (1.3-7.7); Neutrophils % (A) 82 %; Platelet Count 150 k/uL (150-450); Potassium 4.1 mmol/L (3.5-5.1); RBC 4.59 m/uL (4.30-5.90); RDW 13.6 % (11.5-15.5); Total Bilirubin 2.4 mg/dL (0.2-1.3); Total Protein 6.2 g/dL (6.3-8.2); WBC 11.6 k/uL (3.8-10.6)
[2017-12-04] MEDS: HYDROcodone/APAP 5-325MG 1 EACH TAB PO PRN (19:41)
[2017-12-05 07:09] VITALS: BP 134/92; PULSE 82; RESP 20; TEMP 97.9
[2017-12-05] MEDS: FAMOTIDINE 20 MG/2 ML VIAL IV SCH (07:58)
[2017-12-05] MEDS: ENOXAPARIN 40 MG/0.4 ML SYRINGE SQ SCH (07:58)
[2017-12-05] MEDS: PIPERACILLIN-TAZOBACTAM 3.375 GM in DEXTROSE/WATER 1 50ML.BAG IVPB SCH (07:58)
[2017-12-05 09:08] LABS: ALT 31 U/L (21-72); AST 29 U/L (17-59); Albumin 3.3 g/dL (3.5-5.0); Alkaline Phosphatase 101 U/L (38-126); Anion Gap 10 mmol/L; Blood Urea Nitrogen 14 mg/dL (9-20); Calcium 8.7 mg/dL (8.4-10.2); Carbon Dioxide 27 mmol/L (22-30); Chloride 103 mmol/L (98-107); Glucose 110 mg/dL (74-99); Potassium 4.3 mmol/L (3.5-5.1); Sodium 140 mmol/L (137-145); Total Bilirubin 1.9 mg/dL (0.2-1.3); Total Protein 5.9 g/dL (6.3-8.2)
[2017-12-05 09:27] LABS: Basophils % (A) 0 %; Eosinophils # (A) 0.3 k/uL (0-0.7); Eosinophils % (A) 4 %; HCT 40.2 % (39.0-53.0); HGB 13.7 gm/dL (13.0-17.5); Lymphocytes # (A) 0.5 k/uL (1.0-4.8); Lymphocytes % (A) 6 %; MCH 32.5 pg (25.0-35.0); MCV 95.7 fL (80.0-100.0); Mean Platelet Volume 8.1; Monocytes # (A) 0.6 k/uL (0-1.0); Monocytes % (A) 7 %; Neutrophils % (A) 82 %; Platelet Count 153 k/uL (150-450); WBC 8.6 k/uL (3.8-10.6)
--- NOTE | 2017-12-05 11:13 | P.PN ---
Subjective Progress Note Date: 12/05/17 57-year-old male up ambulating in the hallway states passing gas and states had a bowel movement last night. Afebrile. Surgical dressing sites dry. Patient did spike a temp last evening of 101. Current temp 97.9. The white count is down to 8.6. Patient states he can use his incentive spirometer achieving thousand. "Yesterday could only get 500. Tolerating activity. States anxious to be discharged home. Patient is postop December 02 upper scapular appendectomy for acute appendicitis. Patient states yesterday did have abdominal cramping after his diet was advanced. Currently patient on clear liquid diet states abdominal cramping resolved Objective - Vital Signs Vital signs: Vital Signs Temp 97.9 F 12/05/17 06:58 Pulse 82 12/05/17 06:58 Resp 20 12/05/17 06:58 BP 134/92 12/05/17 06:58 Pulse Ox 94 L 12/05/17 06:58 Intake & Output 12/04/17 12/05/17 12/05/17 18:59 06:59 18:59 Intake Total 50 550 Balance 50 550 Intake: IV 400 Dextrose 5%-0.9% NaCl 1, 400 000 ml @ 50 mls/hr IV . Q20H [facility] Rx#:[id number] Intake, IV Titration 50 50 Amount IV Fluid Continuation 1, 0 000 ml @ 0 mls/hr IV .STK -MED ONE Rx#:[id number] Piperacillin-Tazobactam 3 50 50 .375 gm In Dextrose/Water 1 50ml.bag @ 12.5 mls/hr IVPB Q8HR [facility] Rx#: [id number] Oral 100 Other: # Voids 1 # Bowel Movements 3 1 - Exam Physical exam 57-year-old male ambulating in the hallway denies dizziness lightheadedness chest pain or shortness of breath Lungs adequate air movement bilaterally on room air Heart S1-S2 audible regular Abdomen surgical dressing site dry. Active bowel tones. Surgical tenderness appropriate. Tolerating diet Distended urinating no difficulty not distended no difficulty in urinating states had a bowel movement Extremities no edema noted - Labs CBC & Chem 7: 12/05/17 07:50 12/05/17 07:50 Labs: Abnormal Lab Results - Last 24 Hours (Table) 0712/04/17 12/05/17 Range/Units 16:56 16:56 07:50 WBC 11.6 H (3.8-10.6) k/uL RBC 4.20 L (4.30-5.90) m/uL Neutrophils # 9.5 H (1.3-7.7) k/uL Lymphocytes # 0.9 L 0.5 L (1.0-4.8) k/uL Carbon Dioxide 31 H (22-30) mmol/L Glucose (74-99) mg/dL Total Bilirubin 2.4 H (0.2-1.3) mg/dL Total Protein 6.2 L (6.3-8.2) g/dL Albumin (3.5-5.0) g/dL 12/05/17 Range/Units 07:50 WBC (3.8-10.6) k/uL RBC (4.30-5.90) m/uL Neutrophils # (1.3-7.7) k/uL Lymphocytes # (1.0-4.8) k/uL Carbon Dioxide (22-30) mmol/L Glucose 110 H (74-99) mg/dL Total Bilirubin 1.9 H (0.2-1.3) mg/dL Total Protein 5.9 L (6.3-8.2) g/dL Albumin 3.3 L (3.5-5.0) g/dL Microbiology - Last 24 Hours (Table) 12/04/17 06:39 Blood Culture - Preliminary Blood No Growth after 24 hours 12/04/17 06:30 Blood Culture - Preliminary Blood No Growth after 24 hours Assessment and Plan Assessment: Impression Present on admission right lower quadrant abdominal pain suspect due to acute appendicitis Computed tomography scan of the abdomen pelvis report indicates evidence of acute appendicitis without perforation or abscess Present on admission leukocytosis present on admission small reducible umbilical hernia Left shoulder rotator cuff pain being worked up by orthopedics Status post December 02 laparoscopic appendectomy for acute appendicitis Postop febrile suspect early atelectasis left lung base Abdominal x-ray findings consistent with early ileus resolving Plan Continue postop surgical care Increase activity Diet as tolerated Prepped for probable discharge soon Pain control DVT and GI prophylaxis IV Zosyn as ordered The above impression and plan of care have been discussed and directed by signing physician. Brittney Cabello nurse practitioner acting as scribe for signing physician.
--- NOTE | 2017-12-05 12:30 | CDI ---
Last Revision, April 2017 Documentation Clarification Form Date: 12/05/2017 12:22:00 PM From: Amy BranchARMNAD, CCDS Admit Date: 12/02/2017 10:12:00 AM Patient Name: Jose Wells Visit Number: [id number] Discharge Date: ATTENTION: The Clinical Documentation Specialists (CDI) and [facility] Coding Staff appreciate your assistance in clarifying documentation. Please respond to the clarification below the line at the bottom and electronically sign. The CDI & [facility] Coding staff will review the response and follow-up if needed. Please note: Queries are made part of the Legal Health Record. If you have any questions, please contact the author of this message via ITS. Dr. Romaine Wayne: Patient is POD # 4 status post a laparoscopic appendectomy for acute appendicitis. Per the 12/05 progress note: Abdominal Xray findings consistent with early ileus, resolving. Patients Admitting Diagnosis: Acute Appendicitis Post-Operative Diagnosis: same Procedure performed: Laparoscopic Appendectomy History/Risk Factors: Former smoker. Clinical Indicators: Minimal postoperative abdominal pain, Ileus found on postop abdominal Xray. Treatment: Diet as tolerated, increased activity, pain control, IV Zosyn. In order to accurately reflect this patients severity of illness, please clarify if the post-operative diagnosis of ileus is: An expected post-procedural or post-surgical condition; Integral to the procedure; Inherent to the procedure; An unexpected post-procedural or post-surgical condition related to surgical care; Other, please specify Unable to determine Please explain the significance of the diagnosis related to the patient's treatment plan. Please continue to document in your progress notes and discharge summary in order to capture severity of illness and risk of mortality. Include clinical findings that support your diagnosis. MTDD
--- NOTE | 2017-12-05 12:33 | P.DS ---
Providers Date of admission: 12/02/17 10:12 Expected date of discharge: 12/05/17 Attending physician: Romaine Wayne Consults: 12/02/17 11:08 Consult Physician Urgent Consulting Provider: Chely Reynolds Consult Reason/Comments: med mtg Do you want consulting provider notified?: Yes Primary care physician: Addison Gilbert Hospital Course: 57-year-old who presented on day of admission to the emergency room to be evaluated for right lower quadrant pain radiating to the mid abdomen with nausea vomiting patient states the pain was intolerable. Could not sleep. Came into the emergency room to be evaluated. Patient stated he had not had prior episodes. At first he thought he was constipated did take a fleets enema at home there was no results. CAT scan of the abdomen pelvis showed acute appendicitis without perforation or abscess. Patient was seen by surgical service underwent laparoscopic appendectomy for acute appendicitis post procedure patient did develop temp chest x-ray suggest early atelectasis with left lower lobe pneumonia not ruled out. Patient was on antibiotics. On the day of discharge there was no white count patient was afebrile patient was appropriate to be discharged home No opiate prescriptions were provided patient stated that he had Blum set home for his left rotator cuff shoulder Impression Present on admission right lower quadrant abdominal pain suspect due to acute appendicitis Computed tomography scan of the abdomen pelvis report indicates evidence of acute appendicitis without perforation or abscess Present on admission leukocytosis present on admission small reducible umbilical hernia Left shoulder rotator cuff pain being worked up by orthopedics Status post December 02 laparoscopic appendectomy for acute appendicitis Postop febrile suspect early atelectasis left lung base Abdominal x-ray findings consistent with early ileus resolving The above impression and plan of care have been discussed and directed by signing physician. Brittney Cabello nurse practitioner acting as scribe for signing physician. Plan - Discharge Summary Discharge Rx Participant: No New Discharge Prescriptions: New Cephalexin [Keflex] 250 mg PO Q8HR #21 capsule Continue HYDROcodone/APAP 10-325MG [Blum 10-325] 1 tab PO BID PRN PRN Reason: Pain Discharge Medication List HYDROcodone/APAP 10-325MG [Blum 10-325] 1 tab PO BID PRN 12/02/17 [History] Cephalexin [Keflex] 250 mg PO Q8HR #21 capsule 12/05/17 [Rx] Follow up Appointment(s)/Referral(s): Jesse Jameson DO [Primary Care Provider] - 1-2 days (office will call you with date and time) Romaine Wayne MD [STAFF PHYSICIAN] - 12/16/17 11:30 am Patient Instructions/Handouts: Laparoscopic Appendectomy (DC) Activity/Diet/Wound Care/Special Instructions: No tub bath for six weeks. Shower daily. No lifting over 10 pounds for the next 6 weeks. Do not remove surgical dressing until seen in follow-up surgical visit May use ice packs to surgical site. No driving while taking narcotic for pain. Advance diet slowly eating some all amount until tolerating with no abdominal cramping The constipation use [id number] stool softener Discharge Disposition: HOME SELF-CARE
--- NOTE | 2017-12-05 12:44 | CDI ---
Last Revision, April 2017 Documentation Clarification Form Date: 12/05/2017 12:37:00 PM From: Amy BranchARMAND, CCDS Admit Date: 12/02/2017 10:12:00 AM Patient Name: Jose Wells Visit Number: [id number] Discharge Date: ATTENTION: The Clinical Documentation Specialists (CDI) and [facility] Coding Staff appreciate your assistance in clarifying documentation. Please respond to the clarification below the line at the bottom and electronically sign. The CDI & [facility] Coding staff will review the response and follow-up if needed. Please note: Queries are made part of the Legal Health Record. If you have any questions, please contact the author of this message via ITS. Dr. Romaine Wayne: Patient is POD # 4 status post a laparoscopic appendectomy for acute appendicitis. Per the 12/05 progress note: Postop febrile suspect early atelectasis left lung base. Patients Admitting Diagnosis: Acute Appendicitis Post-Operative Diagnosis: same Procedure performed: Laparoscopic Appendectomy History/Risk Factors: Former smoker. Clinical Indicators: Minimal postoperative abdominal pain, postop CXR: Developing atelectasis or consolidation left lung base. Treatment: Diet as tolerated, increased activity, incentive spirometry, pain control, IV Zosyn. In order to accurately reflect this patients severity of illness, please clarify if the post-operative diagnosis of atelectasis is: An expected post-procedural or post-surgical condition; An unexpected post-procedural or post-surgical condition related to surgical care; Other, please specify Unable to determine Please explain the significance of the diagnosis related to the patient's care & treatment plan. Please continue to document in your progress notes and discharge summary in order to capture severity of illness and risk of mortality. Include clinical findings that support your diagnosis. MTDD
== END 2017-12-05 12:39 | disposition home or self-care (01) | DRG 341 ==
LOC: EC 07:07 → 4MS4W 10:12
PROVIDERS: ADMIT Surgery; ATTEND Surgery
PROC: 0DTJ4ZZ Resection of Appendix, Percutaneous Endoscopic Approach (ICD-10-PCS; principal; 2017-12-02 10:10)
DX: K35.80 Unspecified acute appendicitis (principal); J18.9 Pneumonia, unspecified organism; K56.7 Ileus, unspecified; J98.11 Atelectasis; E87.70 Fluid overload, unspecified; K42.9 Umbilical hernia without obstruction or gangrene; N30.90 Cystitis, unspecified without hematuria; N40.0 Benign prostatic hyperplasia without lower urinary tract symptoms; Z82.5 Family history of asthma and other chronic lower respiratory diseases; Z83.3 Family history of diabetes mellitus; Z85.828 Personal history of other malignant neoplasm of skin; Z87.891 Personal history of nicotine dependence; Z79.891 Long term (current) use of opiate analgesic
CPT/HCPCS: 36415; 71046; 74018; 74176; 80053; 81003; 82150; 83605; 83690; 85025; 87040; 88304; 93005; 96365; 96368; 99285

== ENCOUNTER 2020-04-14 07:56 | Emergency (ER) | payer BC ==
[2020-04-14 08:05] VITALS: RESP 18; TEMP 97.8
[2020-04-14] MEDS ORDERED: diazePAM 2 MG TAB PO STA (08:21)
[2020-04-14] MEDS ORDERED: methylPREDNISolone SOD SUCCI 125 MG/2 ML VIAL IM ONE (08:21)
[2020-04-14] MEDS ORDERED: LIDOCAINE 5% PATCH TOPICAL STA (08:21)
[2020-04-14] MEDS ORDERED: ACET/COD 300 MG/30 MG STARTER PACK 6 TAB BTL PO STA (08:21)
--- NOTE | 2020-04-14 08:23 | ED ---
Back Pain HPI - General Chief Complaint: Back Pain/Injury Stated Complaint: [facility]-Back Pain Time Seen by Provider: 04/14/20 08:05 Source: patient, family Limitations: no limitations - History of Present Illness Initial Comments: 59-year-old male presenting today for chief complaint of back spasms. Patient states that on Tuesday he was sleeping large piles of her heavy when he felt a sudden onset of pain in his low back he states he was bandlike. Patient states he started on his back before however it seems to be lasting longer than usual. He states he attempted to take his friend's muscle relaxers which don't seem to help much. He states is also been applying heat to the area. Patient denies any leg weakness sensation deficits, denies erectile dysfunction he denies IV drug use fevers cancer he denies any urinary retention incontinence arm bowel incontinence. Patient is able to walk, but he states that his back tenses up and he cant feel it spasm'ing. Pt denies falls or direct trauma. Patient denies additional complaints. Upon arrival he appears well nontoxic - Related Data Home Medications Medication Instructions Recorded Confirmed HYDROcodone/APAP 10-325MG [[place] 1 tab PO BID PRN 12/02/17 12/02/17 10-325] Previous Rx's Medication Instructions Recorded Cephalexin [Keflex] 250 mg PO Q8HR #21 capsule 12/05/17 Baclofen 10 mg PO TID PRN 3 Days #9 tab 04/14/20 Ibuprofen 600 mg PO Q6H PRN 5 Days #20 tab 04/14/20 Allergies Allergy/AdvReac Type Severity Reaction Status Date / Time No Known Allergies Allergy Verified 04/14/20 08:05 Review of Systems ROS Statement: Those systems with pertinent positive or pertinent negative responses have been documented in the HPI. ROS Other: All systems not noted in ROS Statement are negative. Past Medical History Past Medical History: No Reported History Additional Past Medical History / Comment(s): Arthritis L thumb, past L ankle fracture with surgery, BPH, constipation, skin cancer removal, chronic back pain History of Any Multi-Drug Resistant Organisms: None Reported Additional Past Surgical History / Comment(s): ankle surgery Past Anesthesia/Blood Transfusion Reactions: No Reported Reaction, Motion Sickness Past Psychological History: No Psychological Hx Reported Smoking Status: Former smoker Past Alcohol Use History: Occasional Past Drug Use History: None Reported - Past Family History Father Family Medical History: Diabetes Mellitus, Renal Disease Additional Family Medical History / Comment(s): Father at the age of 61 or 62 from diabetic complications. He had a kidney transplant. Mother Family Medical History: COPD Additional Family Medical History / Comment(s): Mother at the age of 71 yrs. She was a smoker. Brother(s) Additional Family Medical History / Comment(s): Patient has 2 brothers and one has history of diabetes and the other patient does not know. Patient has 1 sister with no major medical problems. Daughter(s) Additional Family Medical History / Comment(s): Patient has one daughter 31 years of age and one son 29 years of age with no major medical problems. General Exam - General Exam Comments Initial Comments: General: The patient is awake and alert, in no distress Eye: +3 mm pupils are equal, round and reactive to light, extra-ocular moveme nts are intact. No nystagmus. There is normal conjunctiva bilaterally. No signs of icterus. Ears, nose, mouth and throat: There are moist mucous membranes and no oral le sions. Neck: The neck is supple, there is no tenderness or JVD. Cardiovascular: There is a regular rate and rhythm. No murmur, rub or gallop is appreciated. Respiratory: Lungs are clear to auscultation, respirations are non-labored, breath sounds are equal. No wheezes, stridor, rales, or rhonchi. Musculoskeletal: Normal ROM, no tenderness. Normal inspection of thoracic and lumbar spine, no midline tenderness, tension and paraspinal tenderness present b/l Strength 5/5 of the LE b/l. Sensation intact of the LE b/l. Radial pulses equal bilaterally 2+. Neurological: A&O x 3. CN II-XII intact grossly, There are no obvious motor or sensory deficits. Coordination appears grossly intact. Speech is normal. Skin: Skin is warm and dry and no rashes or lesions are noted. Psychiatric: Cooperative, appropriate mood & affect, normal judgment. Limitations: no limitations Course Vital Signs 04/14/20 04/14/20 08:03 08:48 Temperature 97.8 F Pulse Rate 86 82 Respiratory 18 Rate Blood Pressure 154/97 168/91 O2 Sat by Pulse 98 Oximetry Medical Decision Making - Medical Decision Making No fall trauma.. NO IVDU or cancer. No hx of PE concerning for cauda equina. Patient ambulatory. Patient has paraspinal tenderness. Patient has no midline. No radicular symptoms. Patient will be discharged with symptomatic treatment. Pt agreeable to care plan and discharge. Is to f/u with PCP and orthopedics. Discussed case with Dr. Lorenzo Disposition Clinical Impression: Low back pain, Muscle spasm Disposition: HOME SELF-CARE Condition: Good Instructions (If sedation given, give patient instructions): Acute Low Back Pain (ED) Additional Instructions: Please use medication as discussed. Please follow-up with family doctor in the next 2 days. Please return to emergency room if the symptoms increase or worsen or for any other concerns. Prescriptions: Baclofen 10 mg PO TID PRN 3 Days #9 tab PRN Reason: Muscle Spasm Ibuprofen 600 mg PO Q6H PRN 5 Days #20 tab PRN Reason: Pain Is patient prescribed a controlled substance at d/c from ED?: No Referrals: Norman Mathis MD [Primary Care Provider] - 1-2 days Mg Farooq DO [Doctor of Osteopathic Medicine] - 1-2 days Time of Disposition: 08:23
[2020-04-14 09:22] VITALS: BP 141/88; PULSE 84
== END 2020-04-14 09:21 | disposition home or self-care (01) ==
LOC: EC 07:56
DX: M62.830 Muscle spasm of back (principal); Z87.891 Personal history of nicotine dependence; Z85.828 Personal history of other malignant neoplasm of skin; X50.1XXA Overexertion from prolonged static or awkward postures, initial encounter; Y92.009 Unspecified place in unspecified non-institutional (private) residence as the place of occurrence of the external cause
CPT/HCPCS: 99283; 96372; J2930

== ENCOUNTER 2020-08-29 10:06 | Day surgery (SDC) | payer BC ==
[2020-08-27 11:30] VITALS: BMI 28.8
[~2020-08-29 10:06] MED LIST: LACTATED RINGERS 1,000 ML IV SCH
[2020-08-29] MEDS ORDERED: LACTATED RINGERS 1,000 ML IV ONE ×2 (10:31)
[2020-08-29] MEDS ORDERED: LIDOCAINE 1% (10MG/ML) FOR IV START INTRADERMA ONE (10:50)
[2020-08-29 10:55] VITALS: RESP 16; TEMP 98.2
[2020-08-29] MEDS ORDERED: PROPOFOL 10 MG/ML 20 ML VIAL IV ONE (11:42)
--- NOTE | 2020-08-29 11:50 | P.GSHP ---
History of Present Illness H&P Date: 08/29/20 Chief Complaint: History of colon polyps This 60-year-old male presents today for colonoscopy. Patient has history of colon polyps. He has complaints of anal pain. Past Medical History Past Medical History: Cancer, GERD/Reflux, Prostate Disorder Additional Past Medical History / Comment(s): BPH, constipation, skin cancer removal, chronic back pain, RECTAL PAIN-PAST HX HEMORRHOIDS History of Any Multi-Drug Resistant Organisms: None Reported Past Surgical History: Appendectomy, Orthopedic Surgery Additional Past Surgical History / Comment(s): LT ankle surgery , COLONOSCOPY Past Anesthesia/Blood Transfusion Reactions: Motion Sickness Smoking Status: Former smoker - Past Family History Father Family Medical History: Diabetes Mellitus, Renal Disease Additional Family Medical History / Comment(s): Father at the age of 61 or 62 from diabetic complications. He had a kidney transplant. Mother Family Medical History: COPD Additional Family Medical History / Comment(s): Mother at the age of 71 yrs. She was a smoker. Brother(s) Additional Family Medical History / Comment(s): Patient has 2 brothers and one has history of diabetes and the other patient does not know. Patient has 1 sister with no major medical problems. Daughter(s) Additional Family Medical History / Comment(s): Patient has one daughter 31 years of age and one son 29 years of age with no major medical problems. Medications and Allergies Home Medications Medication Instructions Recorded Confirmed Type Omeprazole 40 mg PO DAILY 08/27/20 08/29/20 History Tadalafil [Cialis] 5 mg PO DAILY 08/27/20 08/29/20 History Allergies Allergy/AdvReac Type Severity Reaction Status Date / Time No Known Allergies Allergy Verified 08/29/20 10:34 Surgical - Exam Vital Signs Temp Pulse Resp BP Pulse Ox 98.2 F 80 16 154/94 98 08/29/20 10:45 08/29/20 10:45 08/29/20 10:45 08/29/20 10:45 08/29/20 10:45 - General well developed, well nourished, no distress - Eyes PERRL - ENT normal pinna - Neck no masses - Respiratory normal expansion - Cardiovascular Rhythm: regular - Abdomen Abdomen: soft, non tender Assessment and Plan Assessment: History: Colonic Polyps. We'll perform colonoscopy.
--- NOTE | 2020-08-29 11:58 | P.OP ---
Date of Procedure: 08/29/20 Preoperative Diagnosis: History of colon polyps Postoperative Diagnosis: Normal colonoscopy Procedure(s) Performed: Colonoscopy Anesthesia: MAC Surgeon: Romaine Wayne Pathology: none sent Condition: stable Disposition: PACU Description of Procedure: PROCEDURE: The patient was placed on the endoscopy table in the lateral position. Digital rectal examination was performed which revealed no abnormalities. The prostate was symmetrical without nodules. Flexible colonoscope was then placed in the patient's anus and passed throughout the entire colon. The ileocecal valve was visualized. There was a large amount of liquid stool in the colon which limited the view of the mucosa. The cecum, ascending, transverse, descending and sigmoid colon were normal. The rectum was normal as well. There were no masses, polyps or diverticula noted in the entire colon. SUMMARY OF FINDINGS: Normal colonoscopy.
[2020-08-29 12:16] VITALS: BP 118/76; PULSE 73
== END 2020-08-29 12:27 | disposition home or self-care (01) ==
LOC: ORWHC2ENDO 10:06
PROVIDERS: ATTEND Surgery
DX: K62.89 Other specified diseases of anus and rectum (principal); K21.9 Gastro-esophageal reflux disease without esophagitis; N40.0 Benign prostatic hyperplasia without lower urinary tract symptoms; M19.90 Unspecified osteoarthritis, unspecified site; Z79.899 Other long term (current) drug therapy; Z86.010 Personal history of colon polyps; Z83.3 Family history of diabetes mellitus; Z83.6 Family history of other diseases of the respiratory system; Z85.828 Personal history of other malignant neoplasm of skin; Z87.19 Personal history of other diseases of the digestive system; Z87.891 Personal history of nicotine dependence
CPT/HCPCS: 45378; J2704

== ENCOUNTER → 2020-10-01 | Outpatient (CLI) | payer BC ==
--- NOTE | 2020-10-02 10:25 | CT ---
EXAMINATION TYPE: CT abdomen pelvis wo/w con DATE OF EXAM: 10/01/2020 COMPARISON: 12/02/2017 INDICATION: pelvic mass DLP: 2357 mGycm, Automated exposure control for dose reduction was used. CONTRAST: 100 mL of Isovue 300. Study performed with Oral Contrast TECHNIQUE: Axial images were obtained from above the diaphragm to the pubic rami in the axial plane a t 5 mm thick sections. Reconstructed images are reviewed on the computer in the coronal plane. FINDINGS: Limited CT sections are obtained the lung bases. There may be some minimal subsegmental atelectasis in the right lower lobe. Lung bases are otherwise clear.. CT ABDOMEN: Liver: Normal Spleen: Normal Pancreas: Normal Adrenal glands: The adrenal glands are normal. Gallbladder: Decompressed but normal as visualized. Kidneys: No masses are evident. No hydronephrosis is present. No cysts are present. No renal stone s are identified. Aorta: Minimal vascular calcification is within the aorta. Inferior vena cava: Normal. CT PELVIS: Loops of bowel within the abdomen and pelvis are normal. The studies without oral contrast limiti ng bowel evaluation. Moderate fecal debris is through the colon. No obstruction is identified. Appendix: Surgically absent Urinary bladder: Normal. Genitourinary structures: Prostate is normal. Osseous structures: There is a lytic lesion through the right inferior sacrum centimeters the obturat or canal. Soft tissue is associated with this. This measures 6.0 x 3.6 x 2.7 cm. IMPRESSIONS: 1. Soft tissue mass extending from the right sacral lytic lesion. Workup for metastasis is recommende d. 2. Fecal retention. 3. Minimal subsegmental atelectasis right lung base.
== END | disposition home or self-care (01) ==
LOC: RADCTMAIN 14:54
PROVIDERS: ATTEND Internal Medicine Hematology & Oncology
DX: R19.00 Intra-abdominal and pelvic swelling, mass and lump, unspecified site (principal); K59.00 Constipation, unspecified; J98.11 Atelectasis
CPT/HCPCS: 74178; Q9967

== ENCOUNTER 2020-10-07 08:40 | Day surgery (SDC) | payer BC ==
[2020-10-07 09:29] VITALS: RESP 16; TEMP 98.1
[2020-10-07] MEDS ORDERED: ALPRAZolam 0.5 MG TAB PO STA (09:36)
[2020-10-07] MEDS ORDERED: HYDROmorphone 0.5 MG/0.5 ML SYRINGE IVP STA (10:13)
[2020-10-07 10:44] VITALS: BP 131/71; PULSE 71
--- NOTE | 2020-10-07 12:56 | CT ---
EXAMINATION TYPE: CT biopsy bone superficial DATE OF EXAM: 10/07/2020 HISTORY: Lytic sacral mass COMPARISON: CT 10/01/2020, 12/02/2017 Automated exposure control for dose reduction, DLP 886 mGycentimeters Maximal barrier technique was utilized, hand hygiene obtained with soap and water. The skin overlyin g a suitable path to the lesion was localized using CT and the overlying skin was prepped and draped. Lidocaine used for local anesthesia. A skin boy made with a scalpel. Using CT guidance, access w as gained to the lytic bone lesion with a 18-gauge core needle. Core specimen submitted to pathology in formalin. 2 pass(es) performed in all. Following the procedure no immediate complications. Th e patient is discharged in stable condition. Hemostasis achieved. IMPRESSION: Status post CT guided core biopsy lytic sacral mass. There is a solid spiculated soft tis chari mass also noted on prior CT adjacent to the rectum measuring approximately 3.5 cm. If bowel surve illance has not been performed then it should be considered. A Yellow level critical message alert has been initiated for Levy Payton MD via the [employer] System on 10/07/2020 12:54 PM. This message alert has been sent to Levy Payton MD via t he preferences provided by the clinician for the receipt of Radiology Critical Findings. Message ID [id number].
== END 2020-10-07 11:15 | disposition home or self-care (01) ==
LOC: RADPROMAIN 08:40
PROVIDERS: ATTEND Internal Medicine Hematology & Oncology
DX: C79.51 Secondary malignant neoplasm of bone (principal)
CPT/HCPCS: 88305; 88342; 88341; 96374; 77012; 20220; J1170

== ENCOUNTER → 2020-10-17 | Outpatient (CLI) | payer BC ==
--- NOTE | 2020-10-20 12:03 | PE ---
EXAMINATION TYPE: PET CT fusion skull to thigh DATE OF EXAM: 10/17/2020 COMPARISON: Recent CT abdomen and pelvis August 01, 2020 HISTORY: Colorectal cancer diagnosed on biopsy October 07, 2020 TECHNIQUE: Following the intravenous administration of 10.01 mCi of F-18 FDG, whole body images are performed from the skull base to the midthigh. Images are reviewed on the computer in the coronal, a xial, and sagittal planes. Reconstructed rotating images are created on independent workstation and reviewed on the computer. A localization and attenuation correction CT is performed in conjunction with the PET scan. Blood glucose level equals 109. SCAN: Initial Scan FINDINGS: SKULL BASE AND NECK: No areas of abnormal hypermetabolic uptake. CHEST, MEDIASTINUM, AND HILAR REGION: No areas of abnormal hypermetabolic uptake. ABDOMEN AND PELVIS: Normal excretion is present. There is posterior left perirectal hypermetabolic le sions seen better on this study versus recent CT near axial image 240 measuring roughly 2.5 x 1.1 cm, max SUV is 15.17. Just superior to this there is abnormal left pelvic 2.5 x 2.0 cm lymph node axial image 232, max SUV is 3.75. OSSEOUS STRUCTURES: Destructive right sacral soft tissue mass is redemonstrated measuring approximate ly 5.5 x 3.5 cm axial image 228, max SUV is 7.77. Difficult to accurately measure as blends with ayala cent muscle. No additional areas of abnormal hypermetabolic uptake. OTHER CT: There are prominent pulmonary arteries, CT findings consistent with underlying pulmonary ar brandon hypertension. Tiny pericardial effusion. Occasional sigmoid colonic diverticula. Prostate gland mildly enlarged in size. IMPRESSION: There is rectal mass or neoplasm with adjacent left superior pelvic adenopathy and large destructive right sacral osseous metastatic lesion. No additional distal metastatic disease noted.
== END | disposition home or self-care (01) ==
LOC: RADPETMAIN 11:35
PROVIDERS: ATTEND Internal Medicine Hematology & Oncology
DX: C19 Malignant neoplasm of rectosigmoid junction (principal); C79.51 Secondary malignant neoplasm of bone; R59.0 Localized enlarged lymph nodes
CPT/HCPCS: 78815; A9552

== ENCOUNTER 2020-10-31 11:16 | Day surgery (SDC) | payer BC ==
[2020-10-29 10:37] VITALS: BMI 27.0
[2020-10-31 12:56] VITALS: RESP 16; TEMP 97
[2020-10-31] MEDS ORDERED: LIDOCAINE 1% (10MG/ML) FOR IV START INTRADERMA ONE (13:00)
[2020-10-31] MEDS ORDERED: LIDOCAINE 1% INJ 10MG/ML (20 ML MDV) ONE (14:20)
[2020-10-31] MEDS ORDERED: PROPOFOL 10 MG/ML 20 ML VIAL IV ONE (14:20)
--- NOTE | 2020-10-31 14:25 | P.GSHP ---
History of Present Illness H&P Date: 10/31/20 Chief Complaint: Pelvic mass This a 6-year-old male who rectal cancer. Patient rents today for colonoscopy. 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-Dx July 2020-current radiation tx's,current constipation hx BPH, constipation, skin cancer removal, chronic back pain, RECTAL PAIN-PAST HX HEMORRHOIDS,had covid in Apr 2020 History of Any Multi-Drug Resistant Organisms: None Reported Past Surgical History: Appendectomy, Orthopedic Surgery Additional Past Surgical History / Comment(s): LT ankle surgery , COLONOSCOPY- polyps removed 1 mos ago Past Anesthesia/Blood Transfusion Reactions: Motion Sickness Additional Past Anesthesia/Blood Transfusion Reaction / Comment(s): "feels dizzy and out of it waking up from anesthesia" Smoking Status: Former smoker - Past Family History Father Family Medical History: Diabetes Mellitus, Renal Disease Additional Family Medical History / Comment(s): Father at the age of 61 or 62 from diabetic complications. He had a kidney transplant. Mother Family Medical History: COPD Additional Family Medical History / Comment(s): Mother at the age of 71 yrs. She was a smoker. Brother(s) Family Medical History: Cancer Additional Family Medical History / Comment(s): Patient has 2 brothers and one has history of diabetes and the other patient does not know.,. brother colon CA. Patient has 1 sister with no major medical problems. Daughter(s) Additional Family Medical History / Comment(s): Patient has one daughter 31 years of age and one son 29 years of age with no major medical problems. Medications and Allergies Home Medications Medication Instructions Recorded Confirmed Type Omeprazole 40 mg PO DAILY 08/27/20 10/31/20 History Ibuprofen 600 mg PO TID PRN 09/24/20 10/31/20 History HYDROcodone/APAP 10-325MG [[place] 1 tab PO Q6HR PRN 10/07/20 10/31/20 History 10-325] Dexamethasone [Decadron] 4 mg PO TID 10/29/20 10/31/20 History Stool [place]ner 1 cap PO DAILY PRN 10/29/20 10/31/20 History Allergies Allergy/AdvReac Type Severity Reaction Status Date / Time No Known Allergies Allergy Verified 10/29/20 09:45 Surgical - Exam Vital Signs Temp Pulse Resp BP Pulse Ox 97.0 F L 67 16 128/78 97 10/31/20 12:52 10/31/20 12:52 10/31/20 12:52 10/31/20 12:52 10/31/20 12:52 - General well developed, well nourished, no distress - Eyes PERRL - ENT normal pinna - Neck no masses - Respiratory normal expansion - Cardiovascular Rhythm: regular - Abdomen Abdomen: soft, non tender Assessment and Plan Assessment: Pelvic mass, presumed rectal cancer. Patient will undergo colonoscopy.
--- NOTE | 2020-10-31 14:38 | P.OP ---
Date of Procedure: 10/31/20 Preoperative Diagnosis: Rectal cancer Postoperative Diagnosis: Rectal polyp 2 Procedure(s) Performed: Colonoscopy Anesthesia: MAC Surgeon: Romaine Wayne Pathology: other (Rectal polyp 2) Condition: stable Disposition: PACU Description of Procedure: The patient's placed on the endoscopy table in the lateral position. He received IV sedation. Digital rectal exam was performed which revealed a large amount of stool in the rectum. With the examining finger a small polyp could be palpated. This point the colonoscope was then placed patient anus. Using irrigation system the rectum was cleared and then the polyp was visualized. The polyp was approximately the 10 cm bree. This was removed with snare. The scope could not be advanced secondary to large amount stool in the colon. At this point the scope was withdrawn. Another small polyp was seen in the rectum this removed with the snare as well. Patient top she will was sent to recovery room stable condition.
[2020-10-31 14:54] VITALS: BP 118/83; PULSE 70
== END 2020-10-31 15:14 | disposition home or self-care (01) ==
LOC: ORWHC2ENDO 11:16
PROVIDERS: ATTEND Surgery
DX: Z12.11 Encounter for screening for malignant neoplasm of colon (principal); D12.8 Benign neoplasm of rectum; K21.9 Gastro-esophageal reflux disease without esophagitis; K59.00 Constipation, unspecified; Z85.828 Personal history of other malignant neoplasm of skin; Z92.3 Personal history of irradiation; N40.0 Benign prostatic hyperplasia without lower urinary tract symptoms; G89.29 Other chronic pain; M54.9 Dorsalgia, unspecified; Z87.891 Personal history of nicotine dependence; Z80.0 Family history of malignant neoplasm of digestive organs; Z79.899 Other long term (current) drug therapy
CPT/HCPCS: 88305; 45309; J2001; J2704; 45385

== ENCOUNTER → 2020-11-05 | Outpatient (CLI) | payer BC ==
--- NOTE | 2020-11-05 13:21 | FL ---
EXAMINATION TYPE: FL barium enema DATE OF EXAM: 11/05/2020 COMPARISON: PET/CT 10/17/2020 HISTORY: Metastatic neoplasm TECHNIQUE: Double air contrast technique is utilized. Barium followed by air is reflux into the colon to the cecum. Real-time observation fluoroscopy and overhead radiographs were obtained. FINDINGS: A couple of diverticuli are identified within the colon during the exam. Within the proxima l rectum there are a couple of sessile type polyps likely present. Hepatic flexure appears redundant. There is redundancy of the splenic flexure. No circumferential areas of narrowing are evident. Race Car Mechanic view: Patient's known right sacral lytic lesion is identified. This may partially account for t he appearance of the presacral space adjacent to the rectum. IMPRESSION: 1. Couple of sessile-type filling defects within the rectum may be correlated with the patient's rep orted prior polyps. 2. Soft tissue density may be displacing the rectum anteriorly at the sacrum from the patient's known sacral lytic mass. 3. No suspicious large filling defects are circumferential areas of narrowing within the remaining po rtion of the colon are identified.
== END | disposition home or self-care (01) ==
LOC: RADFLMAIN 09:57
PROVIDERS: ATTEND Surgery
DX: K62.89 Other specified diseases of anus and rectum (principal); C80.1 Malignant (primary) neoplasm, unspecified; R22.2 Localized swelling, mass and lump, trunk; K57.30 Diverticulosis of large intestine without perforation or abscess without bleeding
CPT/HCPCS: 74270

== ENCOUNTER 2020-11-17 06:18 | Day surgery (SDC) | payer BC ==
[~2020-11-17 06:18] MED LIST changes: +ACETAMINOPHEN TAB 500 MG TAB PO PRN; +HEPARIN SODIUM,PORCINE/PF 5,000 UNIT/0.5 ML SYRINGE SQ PRN; +Pre Op ABX Message 1 EACH MISC MISCELLANE ONE
[2020-11-17] MEDS ORDERED: ONDANSETRON 4 MG/2 ML VIAL IVP ONE (06:54)
[2020-11-17] MEDS ORDERED: DEXAMETHASONE SOD PHOSPHATE 4 MG/ML 1 ML VIAL IVP ONE (06:54)
[2020-11-17] MEDS ORDERED: SCOPOLAMINE 1.5MG/72HR PATCH TRANSDERM ONE (06:55)
[2020-11-17] MEDS ORDERED: ONDANSETRON 4 MG/2 ML VIAL ONE (06:58)
[2020-11-17 06:59] LABS: Glucose,Whole Blood 126 mg/dL (75-99)
[2020-11-17] MEDS ORDERED: BUPIVACAINE (PF) 0.25% 30 ML VIAL SQ ONE ×2 (07:31)
[2020-11-17] MEDS ORDERED: MIDAZOLAM 2 MG/2 ML VIAL ONE (08:06)
[2020-11-17] MEDS ORDERED: LIDOCAINE 1% INJ 10MG/ML (20 ML MDV) ONE (08:06)
[2020-11-17] MEDS ORDERED: PROPOFOL 10 MG/ML 20 ML VIAL IV ONE (08:06)
[2020-11-17] MEDS ORDERED: fentaNYL (PF) 50 MCG/ML 2 ML AMP ONE (08:06)
[2020-11-17] MEDS ORDERED: SODIUM CHLORIDE 0.9% 1,000 ML with ceFAZolin 2,000 MG IV ONE ×2 (08:11)
--- NOTE | 2020-11-17 08:49 | P.GSHP ---
History of Present Illness H&P Date: 11/17/20 Chief Complaint: Rectal cancer This is a 60-year-old male presents today for Port-A-Cath insertion. He received diagnosed with rectal cancer. 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-Dx July 2020- current radiation tx's,current constipation hx BPH, constipation, skin cancer removal, chronic back pain, RECTAL PAIN-PAST HX HEMORRHOIDS,had covid in Apr 2020 History of Any Multi-Drug Resistant Organisms: None Reported Past Surgical History: Appendectomy, Orthopedic Surgery Additional Past Surgical History / Comment(s): LT ankle surgery , COLONOSCOPY- polyps removed 1 mos ago Past Anesthesia/Blood Transfusion Reactions: Motion Sickness Additional Past Anesthesia/Blood Transfusion Reaction / Comment(s): "feels dizzy and out of it waking up from anesthesia" Past Psychological History: No Psychological Hx Reported Additional Psychological History / Comment(s): Pt resides alone. 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 Smoking Status: Former smoker Past Alcohol Use History: Occasional Additional Past Alcohol Use History / Comment(s): Patient quit smoking in 1996. Past Drug Use History: None Reported - Past Family History Father Family Medical History: Diabetes Mellitus, Renal Disease Additional Family Medical History / Comment(s): Father at the age of 61 or 62 from diabetic complications. He had a kidney transplant. Mother Family Medical History: COPD Additional Family Medical History / Comment(s): Mother at the age of 71 yrs. She was a smoker. Brother(s) Family Medical History: Cancer Additional Family Medical History / Comment(s): Patient has 2 brothers and one has history of diabetes and the other patient does not know.,. brother colon CA. Patient has 1 sister with no major medical problems. Daughter(s) Additional Family Medical History / Comment(s): Patient has one daughter 31 years of age and one son 29 years of age with no major medical problems. Medications and Allergies Home Medications Medication Instructions Recorded Confirmed Type Omeprazole 40 mg PO DAILY 08/27/20 11/13/20 History Ibuprofen 600 mg PO TID PRN 09/24/20 11/13/20 History HYDROcodone/APAP 10-325MG [[place] 1 tab PO Q6HR PRN 10/07/20 11/13/20 History 10-325] Stool Softner 1 cap PO DAILY PRN 10/29/20 11/13/20 History Tamsulosin [Flomax] 0.4 mg PO DAILY 11/13/20 11/13/20 History Acetaminophen [Tylenol Extra 1 tab PO Q4-6H PRN 11/17/20 11/17/20 History Strength] Allergies Allergy/AdvReac Type Severity Reaction Status Date / Time No Known Allergies Allergy Verified 11/13/20 13:30 Surgical - Exam Vital Signs Temp Pulse Resp BP Pulse Ox 97 F L 70 20 148/85 96 11/17/20 06:38 11/17/20 06:38 11/17/20 06:38 11/17/20 06:38 11/17/20 06:38 - General well developed, well nourished, no distress - Eyes PERRL - ENT normal pinna - Neck no masses - Respiratory normal expansion - Cardiovascular Rhythm: regular - Abdomen Abdomen: soft, non tender Results - Labs Abnormal Lab Results - Last 24 Hours (Table) 11/17/20 Range/Units 06:48 POC Glucose (mg/dL) 126 H (75-99) mg/dL Assessment and Plan Assessment: Breast cancer. We'll perform Port-A-Cath insertion.
[2020-11-17 08:52] VITALS: TEMP 98
--- NOTE | 2020-11-17 08:57 | P.OP ---
Date of Procedure: 11/17/20 Preoperative Diagnosis: Rectal cancer Postoperative Diagnosis: Rectal cancer Procedure(s) Performed: Insertion of right subclavian Port-A-Cath Anesthesia: MAC Surgeon: Romaine Wayne Pathology: none sent Condition: stable Disposition: PACU Description of Procedure: MPROCEDURE: The patient was placed on the operating table in the supine position. She received MAC anesthetic. The [right] chest was prepped and draped in the usual sterile fashion. The skin underneath the right clavicle was anesthetized with 1% Xylocaine and using Seldinger technique, the right subclavian vein was cannulized. The wire was placed through the needle and positioned under fluoroscopy. Next, the needle was removed and the port site was anesthetized with 1% Xylocaine. Skin was incised with #15 blade and port pocket was made using blunt and sharp dissection. Following this the catheter was attached to the sport and the port was flushed. The port was positioned into the pocket site and was secured with 3-0 Vicryl suture. The catheter was then brought out through the wire site and then the dilator sheath was placed over the wire and the dilator and the wire were removed. The catheter was placed through the sheath and the sheath was removed. The port was flushed with hep-lock solution. Skin was closed with interrupted 3-0 Vicryl sutures. Steri-Strips were applied. The patient tolerated the procedure well. The patient was sent to recovery room for chest x-ray after the procedure.
--- NOTE | 2020-11-17 09:33 | XR ---
EXAMINATION TYPE: XR chest 1V portable DATE OF EXAM: 11/17/2020 Comparison: PET CT 10/17/2020 Clinical History: 60-year-old male Mediport Findings: Right-sided chest wall injection port with subclavian access and catheter tip probably in the lower r ight brachiocephalic vein. Heart normal size. Aorta and pulmonary vasculature within normal limits. L arge focal opacity in the periphery of the right mid lung measures up to 7.6 cm. Impression: 1. Right-sided chest wall injection port. Catheter tip probably in the lower right brachiocephalic ve in. 2. Focal opacity in the periphery of the right midlung. As this finding is new from 10/17/2020, consid er focal infiltrate. Follow-up to ensure clearance.
[2020-11-17 09:46] VITALS: RESP 20
[2020-11-17 10:01] VITALS: BP 146/56; PULSE 77
--- NOTE | 2020-11-17 10:03 | FL ---
Fluoroscopy HISTORY: Port-A-Cath placement 5 seconds fluoroscopy time supplied to the referring clinician. intraoperative C-arm images document the procedure . See dictated report from general surgery.
== END 2020-11-17 10:27 | disposition home or self-care (01) ==
LOC: OR 06:18
PROVIDERS: ATTEND Surgery
DX: C20 Malignant neoplasm of rectum (principal); K21.9 Gastro-esophageal reflux disease without esophagitis; C41.9 Malignant neoplasm of bone and articular cartilage, unspecified; G89.29 Other chronic pain; M54.9 Dorsalgia, unspecified; N40.0 Benign prostatic hyperplasia without lower urinary tract symptoms; Z86.16 Personal history of COVID-19; K59.00 Constipation, unspecified; Z87.891 Personal history of nicotine dependence; Z83.3 Family history of diabetes mellitus; Z82.5 Family history of asthma and other chronic lower respiratory diseases; Z80.0 Family history of malignant neoplasm of digestive organs; Z85.828 Personal history of other malignant neoplasm of skin; Z79.899 Other long term (current) drug therapy
CPT/HCPCS: 36561; 77001; 71045; C1788; J2250; J1100; J2405; J0690; J2001; J3010; J1642; J2704; J1644

== ENCOUNTER → 2021-02-06 | Outpatient (CLI) | payer BC ==
--- NOTE | 2021-02-09 09:10 | PE ---
EXAMINATION TYPE: PET CT fusion skull to thigh DATE OF EXAM: 02/06/2021 COMPARISON: Prior PET/CT October 17, 2020 and older studies HISTORY: Colon cancer progress study. Diagnosed on biopsy October 08. History of sacral radiation treatm ent through October 23. TECHNIQUE: Following the intravenous administration of 13.65 mCi of F-18 FDG, whole body images are performed from the skull base to the midthigh. Images are reviewed on the computer in the coronal, a xial, and sagittal planes. Reconstructed rotating images are created on independent workstation and reviewed on the computer. A localization and attenuation correction CT is performed in conjunction with the PET scan. Blood glucose level equals 110. SCAN: Subsequent Scan FINDINGS: SKULL BASE AND NECK: No new areas of abnormal hypermetabolic uptake. CHEST, MEDIASTINUM, AND HILAR REGION: No new areas of abnormal hypermetabolic uptake. ABDOMEN AND PELVIS: Normal excretion is present. The left perirectal hypermetabolic lesion on prior s tudy axial image 240 now is now ametabolic. Evaristo diminished in size measuring roughly 1.4 x 0.7 cm current study axial image 245. Just superior to this there is persistent stable left pelvic mass or lymph node in size measuring 2.8 x 1.8 cm axial image 240, this lesion is currently ametabolic. Mild symmetric uptake bilateral fine muscles presumed postinflammatory or related to treatment. No ne w areas of abnormal hypermetabolic uptake. OSSEOUS STRUCTURES: Destructive right sacral soft tissue mass is redemonstrated difficult to actually measure due to isodensity to adjacent muscles felt stable in size, mild hypermetabolic uptake curren tly, max SUV is 3.44 on axial image 238 improved from 7.77. No new areas of abnormal hypermetabolic uptake. OTHER CT: There are prominent pulmonary arteries, CT findings consistent with underlying pulmonary ar brandon hypertension. New right subclavian Mediport catheter terminates at brachiocephalic junction. Cor onary artery calcification is present. Stable tiny pericardial effusion anterior inferior aspect Occasional sigmoid colonic diverticula. Moderate size umbilical hernia containing fat and tiny mesent lauren vessels. IMPRESSION: There is positive treatment response as detailed above. No new hypermetabolic lesions are evident.
== END | disposition home or self-care (01) ==
LOC: RADPETMAIN 13:55
PROVIDERS: ATTEND Internal Medicine Hematology & Oncology
DX: I27.20 Pulmonary hypertension, unspecified (principal); I25.10 Atherosclerotic heart disease of native coronary artery without angina pectoris; I31.3 Pericardial effusion (noninflammatory); K57.30 Diverticulosis of large intestine without perforation or abscess without bleeding; K42.9 Umbilical hernia without obstruction or gangrene; Z85.038 Personal history of other malignant neoplasm of large intestine
CPT/HCPCS: 78815; A9552

== ENCOUNTER → 2021-06-19 | Outpatient (CLI) | payer BC ==
--- NOTE | 2021-06-22 08:03 | PE ---
EXAMINATION TYPE: PET CT fusion skull to thigh DATE OF EXAM: 06/19/2021 COMPARISON: Prior PET/CT February 06, 2021 and older studies HISTORY: Colorectal cancer progress study. Diagnosed on biopsy October 08, 2020. History of sacral radi ation treatment completed in October. History of chemotherapy completed May 26, 2021. TECHNIQUE: Following the intravenous administration of 12.23 mCi of F-18 FDG, whole body images are performed from the skull base to the midthigh. Images are reviewed on the computer in the coronal, a xial, and sagittal planes. Reconstructed rotating images are created on independent workstation and reviewed on the computer. A localization and attenuation correction CT is performed in conjunction with the PET scan. Blood glucose level equals 98. SCAN: Subsequent Scan FINDINGS: SKULL BASE AND NECK: No new areas of abnormal hypermetabolic uptake. CHEST, MEDIASTINUM, AND HILAR REGION: No new areas of abnormal hypermetabolic uptake. ABDOMEN AND PELVIS: Normal excretion is present. There is more artifact on current study in the pelvi s posterior to the bladder making evaluation on current study suboptimal versus priors. Hypermetaboli c uptake appears to extend into prostate gland and anterior portion of rectum favored artifact as jefferson or site of involvement with the left posterior aspect of the rectum. Just superior to this there is p ersistent but less prominent left pelvic mass or lymph node in size measuring 2.4 x 1[address] udy axial image 239, this lesion remains ametabolic. No new areas of abnormal hypermetabolic uptake. OSSEOUS STRUCTURES: Destructive right sacral soft tissue mass is redemonstrated difficult to actually measure due to isodensity to adjacent muscles felt stable in size, mild hypermetabolic remains prese nt, max SUV is 4.32 versus 3.44 on most recent prior. Similar range within 30%. No new areas of abnormal hypermetabolic uptake. OTHER CT: There are prominent pulmonary arteries, CT findings consistent with underlying pulmonary ar brandon hypertension. Stable right subclavian Mediport catheter. Coronary artery calcification is presen t. Stable tiny pericardial effusion anterior inferior aspect Occasional sigmoid colonic diverticula. Moderate size umbilical hernia containing fat and tiny mesent lauren vessels. IMPRESSION: Slightly suboptimal study. Overall stable findings. Stable mildly hypermetabolic destruct baljeet right sacral lesion. No new hypermetabolic lesions are clearly evident.
== END | disposition home or self-care (01) ==
LOC: RADPETMAIN 15:43
PROVIDERS: ATTEND Internal Medicine Hematology & Oncology
DX: C19 Malignant neoplasm of rectosigmoid junction (principal); M89.8X8 Other specified disorders of bone, other site
CPT/HCPCS: 78815; A9552

== ENCOUNTER → 2021-10-09 | Outpatient (CLI) | payer BC ==
--- NOTE | 2021-10-12 06:44 | PE ---
EXAMINATION TYPE: PET CT fusion skull to thigh DATE OF EXAM: 10/09/2021 COMPARISON: Most recent prior PET/CT June 19, 2021 and older studies. HISTORY: Colon cancer metastatic to tailbone diagnosed August 2020 completed chemotherapy May 27, 2021 TECHNIQUE: Following the intravenous administration of 10.3 mCi of F-18 FDG, whole body images are p erformed from the skull base to the midthigh. Images are reviewed on the computer in the coronal, ax ial, and sagittal planes. Reconstructed rotating images are created on independent workstation and r eviewed on the computer. A localization and attenuation correction CT is performed in conjunction w ith the PET scan. Blood glucose level equals 106 SCAN: Subsequent Scan FINDINGS: SKULL BASE AND NECK: No new areas of abnormal hypermetabolic uptake. CHEST, MEDIASTINUM, AND HILAR REGION: No new areas of abnormal hypermetabolic uptake. ABDOMEN AND PELVIS: Normal excretion is present. Mild nonspecific bowel uptake redemonstrated. Persis tent fairly stable left pelvic mass or lymph node in size measuring roughly 1.9 x 1.6 cm current stud y axial image 241, this lesion remains ametabolic. No new areas of abnormal hypermetabolic uptake. OSSEOUS STRUCTURES: Destructive center right sacral soft tissue mass is redemonstrated difficult to a ctually measure due to isodensity to adjacent muscles is increased in size with now a left-sided exte nsion measuring roughly 9.5 cm long axis axial image 238, increased hypermetabolic is now present, ma x SUV is 7.22 axial image 233 versus 4.32 on most recent prior. No new areas of abnormal hypermetabolic uptake. OTHER CT: There are prominent pulmonary arteries, CT findings consistent with underlying pulmonary ar brandon hypertension. Stable right subclavian Mediport catheter. Coronary artery calcification is redemo nstrated. Stable tiny pericardial effusion anterior inferior aspect Occasional sigmoid colonic diverticula. Moderate to large size umbilical hernia containing fat and t iny mesenteric vessels. IMPRESSION: Worsening hypermetabolic destructive sacral lesion. No new hypermetabolic lesions are shayla shen evident.
== END | disposition home or self-care (01) ==
LOC: RADPETMAIN 11:56
PROVIDERS: ATTEND Internal Medicine Hematology & Oncology
DX: C18.9 Malignant neoplasm of colon, unspecified (principal); C79.51 Secondary malignant neoplasm of bone; Z92.21 Personal history of antineoplastic chemotherapy
CPT/HCPCS: 78815; A9552

== ENCOUNTER → 2022-01-08 | Outpatient (CLI) | payer BC ==
--- NOTE | 2022-01-09 12:39 | PE ---
EXAMINATION TYPE: PET CT fusion skull to thigh DATE OF EXAM: 01/08/2022 CLINICAL INDICATION:Male, 61 years old with history of C18.8 Colon Cancer; TECHNIQUE: Following the intravenous administration of 11.62 mCi of F-18 FDG, whole body images are performed from the skull base to the midthigh. Images are reviewed on the computer in the coronal, axial, and sagittal planes. Reconstructed rotating images are created on independent workstation and reviewed on the computer. A non-contrast CT is performed in conjunction with the PET scan. Glucose level 132 mg/dL COMPARISON: CT 10/01/2020., PET/CT most recent 10/09/2021, FINDINGS: Mediastinal SUV maximum is 2.0. Hepatic parenchyma SUV maximum is 2.8. SKULL BASE AND NECK: No suspicious FDG activity. Asymmetric increased FDG activity in the right paro tid gland with max SUV 2.7, the left parotid gland is surgically absent versus atrophic. CHEST, MEDIASTINUM, AND HILAR REGION: No suspicious FDG activity. ABDOMEN AND PELVIS: No suspicious FDG activity. The colon is without increased FDG activity. There is normal excretion within the renal collecting systems. OSSEOUS STRUCTURES: Redemonstration of destructive sacral mass with adjacent soft tissue. Overall siz e is now approximately 13.2 x 4.0 cm on axial imaging with more caudal extension into the sacrum when compared to prior's. It also extends more leftward into the soft tissues. FDG activity has mildly in creased at SUV 8.4 previously max SUV 7.22. OTHER CT: Mild atherosclerosis at the left carotid bifurcation. There is a right chest [id number] with distal tip terminating in the superior vena cava. There is mild to moderate atherosclerosis of t he coronary arteries. The heart is mildly enlarged for size. Small splenule is present. Spleen is enl arged measuring up to 15.4 cm. Is mild bilateral hydronephrosis process with hydroureter extending to the bladder postsurgical changes consistent with TURP of the prostate. Small fat-containing umbilica l hernia. Scattered atherosclerosis of the arterial vasculature. IMPRESSION: Progressive disease with increase in size of soft tissue mass centered around the sacrum with mild in creased FDG activity.
== END | disposition home or self-care (01) ==
LOC: RADPETMAIN 10:39
PROVIDERS: ATTEND Internal Medicine Hematology & Oncology
DX: C18.8 Malignant neoplasm of overlapping sites of colon (principal)
CPT/HCPCS: 78815; A9552

== ENCOUNTER → 2022-03-05 | Outpatient (CLI) | payer BC ==
--- NOTE | 2022-03-08 11:08 | PE ---
EXAMINATION TYPE: PET CT fusion skull to thigh DATE OF EXAM: 03/05/2022 CLINICAL INDICATION:Male, 61 years old with history of C18.9 Colon Cancer; TECHNIQUE: Following the intravenous administration of 11.0 mCi of F-18 FDG, whole body images are performed from the skull base to the midthigh. Images are reviewed on the computer in the coronal, a xial, and sagittal planes. Reconstructed rotating images are created on independent workstation and reviewed on the computer. A non-contrast CT is performed in conjunction with the PET scan. Glucose level 117 mg/dL COMPARISON: CT 10/07/2020, 10/01/2020, PET/CT 01/08/2022, FINDINGS: Mediastinal SUV mean is 1.5. Hepatic parenchyma SUV mean is 2.2. SKULL BASE AND NECK: No suspicious FDG activity. CHEST, MEDIASTINUM, AND HILAR REGION: No suspicious FDG activity. ABDOMEN AND PELVIS: No suspicious FDG activity. OSSEOUS STRUCTURES: Persistent mass within the sacral region which has decreased in volume of abnorma l FDG activity when comparing to prior. Previously this had a more diffuse uptake bilaterally. Now th e left with max SUV 13.5 measuring approximately 4.2 x 3.4 cm, previously measured 4.8 x 3.4 cm. Prev iously max SUV in this same area was 7.3. On the right similar ill-defined FDG activity in the area of the sacrum as seen on prior. There remai ns a cavitation which does not demonstrate increased FDG activity along the periphery. FDG activity h as decreased now max SUV 5.[address]: Right chest wall [id number]-i-Sikr with tip terminating in the superior vena cava. Mild coronar y artery atherosclerosis. Similar bilateral hydronephrosis with urinary bladder wall thickening. Fat- containing umbilical hernia. Suspected postsurgical changes to the prostate gland. The spleen is enla rged measuring up to 15.6 cm. IMPRESSION: Mixed response to therapy with persistent FDG activity predominantly in the left aspect of soft tissu e sacral mass. Areas on the right demonstrate a mild decrease in FDG activity. Overall volume of the area on the left has decreased but almost doubled in FDG activity.
== END | disposition home or self-care (01) ==
LOC: RADPETMAIN 11:41
PROVIDERS: ATTEND Internal Medicine Hematology & Oncology
DX: C18.9 Malignant neoplasm of colon, unspecified (principal)
CPT/HCPCS: 78815; A9552

== ENCOUNTER → 2022-06-18 | Outpatient (CLI) | payer BC ==
--- NOTE | 2022-06-21 12:42 | PE ---
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 Images are reviewed on the computer in the coronal, axial, and sagittal planes. Reconstructed rotating images are created on independent workstation and reviewed on the computer. A non-contrast CT is performed in conjunction with the PET scan. Glucose level 105 mg/dL COMPARISON: CT 10/07/2020 CT biopsy, PET/CT 03/05/2022, FINDINGS: Mediastinal SUV mean is 1.4. Hepatic parenchyma SUV mean is 2.3. SKULL BASE AND NECK: No suspicious radiotracer activity. CHEST, MEDIASTINUM, AND HILAR REGION: * No suspicious radiotracer activity. * Similar left lower lobe lateral pulmonary nodule measuring 5 mm without FDG activity. ABDOMEN AND PELVIS: No suspicious radiotracer activity. OSSEOUS STRUCTURES: * Osseous uptake within the sacrum and presacral space with osseous erosion changes to the sacrum ma x SUV 12.1, previously 13.5. Focal area of FDG activity now measuring approximately 6.6 x 4.3 cm, pre viously 4.2 x 3.1 cm. There remains a fluid collection within this space with focus of gas not signif icantly changed from prior. * Diffuse osseous uptake consistent with CSF used. OTHER CT: Atherosclerosis of the arterial vasculature including the carotid bifurcations and coronary arteries. There is right chest wall [id number] with tip terminating in the superior vena cava. Mi ld emphysema changes are seen throughout the lungs. Mild left hydronephrosis may be mildly increased. IMPRESSION: 1. Increase in size of soft tissue with slight decreased FDG involving the sacral/presacral space me tastatic site. Osseous erosive changes of the sacrum have not significantly changed from 03/05/2022. N o additional sites of abnormal FDG activity are visualized. 2. Mild worsening of the left hydronephrosis now [id number]. No obvious obstructive calculus.
== END | disposition home or self-care (01) ==
LOC: RADPETMAIN 15:46
PROVIDERS: ATTEND Internal Medicine Hematology & Oncology
DX: C79.51 Secondary malignant neoplasm of bone (principal); C18.0 Malignant neoplasm of cecum; N13.30 Unspecified hydronephrosis
CPT/HCPCS: 78815; A9552

== ENCOUNTER → 2022-09-11 | Outpatient (CLI) | payer BC, OTHER ==
--- NOTE | 2022-09-13 08:10 | PE ---
EXAMINATION TYPE: PET CT fusion skull to thigh DATE OF EXAM: 09/11/2022 COMPARISON: Most recent PET CT June 18, 2022 and older studies. HISTORY: Colorectal cancer progress study. Original cancer metastatic to tailbone diagnosed August 29, history of sacral surgical removal October 2021 and completed chemotherapy July 21, 2022 TECHNIQUE: Following the intravenous administration of 11.12 mCi of F-18 FDG, whole body images are performed from the skull base to the midthigh. Images are reviewed on the computer in the coronal, a xial, and sagittal planes. Reconstructed rotating images are created on independent workstation and reviewed on the computer. A localization and attenuation correction CT is performed in conjunction with the PET scan. Blood glucose level equals 104 SCAN: Subsequent Scan FINDINGS: SKULL BASE AND NECK: No new areas of abnormal hypermetabolic uptake. CHEST, MEDIASTINUM, AND HILAR REGION: There is 8mm lateral left lower lobe pulmonary nodule axial jignesh ge 106 increased in size from prior study. There are new subcentimeter pulmonary nodules greatest in the lung bases for reference medial 6 mm nodule axial image 125 and 2 basilar nodules axial image 126 near 3 to 4 mm in size along with 6 mm left basilar nodule axial image 131. There is 5 mm right lowe r lobe pulmonary nodule axial image 106 on current study and 4 mm anterior right upper lobe lobe nodu le axial image 93 for reference. No abnormal hypermetabolic uptake. ABDOMEN AND PELVIS: Prominent excretion redemonstrated. No definitive new areas of abnormal hypermeta bolic uptake. OSSEOUS STRUCTURES: Significant portion of the lower sacrum and coccyx has been resected similar to p rior. Enlarging hypermetabolic soft tissue mass at this level measures 8.1 x 5.3 cm axial image 230, max SUV is 8.03 on axial image 223. There is some thin-walled fluid density along the right aspect re demonstrated. No new areas of abnormal hypermetabolic uptake. OTHER CT: Stable right subclavian Mediport catheter. Coronary artery calcification is redemonstrated. Splenomegaly again seen. Persistent moderate bilateral hydronephrosis. More prominent abnormal wall thickening in the urinary bladder could be related to treatment change towards the pelvis. IMPRESSION: Neoplastic progression with worsening local neoplasm at site of sacral surgery. There are new and enlarging lower lung pulmonary nodules worrisome for hematogenous metastatic disease despite lack of hypermetabolic uptake currently.
== END | disposition home or self-care (01) ==
LOC: RADPETMAIN 15:24
PROVIDERS: ATTEND Internal Medicine Hematology & Oncology
DX: C18.0 Malignant neoplasm of cecum (principal); R91.8 Other nonspecific abnormal finding of lung field
CPT/HCPCS: 78815; A9552